=== PATIENT | female | born 1950 | race Two or more races ===

== ENCOUNTER 2024-03-18 21:25 | Inpatient (IN) | payer MEDICAID ==
[~2024-03-18] VITALS: Ht 162.6 cm; Wt 63.8 kg
[2024-03-19] VITALS (8 sets, daily range): BP systolic 137–153; BP diastolic 51–74; PULSE 55–69; RESP 12–19; TEMP 98–98.2; O2SAT 94–98
[2024-03-19 00:01] LABS: Basophils # (auto) 0 10 ^3/uL (0-0.2); Eosinophils # (auto) 0 10 ^3/uL (0-0.8); Eosinophils % (auto) 0.6 % (0.0-7.0); Monocytes # (auto) 0.5 10 ^3/uL (0-1.3); White Blood Cell 8.2 10^3/uL (4.4-10.8)
[2024-03-19 00:03] LABS: Basophils % (auto) 0.5 % (0.0-2.0); Hematocrit 42.6 % (36.0-46.0); Hemoglobin 13.9 g/dL (12.2-16.2); Lymphocytes # (auto) 1.6 10 ^3/uL (0.4-5.4); Lymphocytes % (auto) 19.5 % (10.0-50.0); Mean Corpuscular Hemoglobin 26.7 pg (28.0-32.0); Mean Corpuscular Hgb Conc. 32.6 g/dL (32.0-36.0); Monocytes % (auto) 5.8 % (0.0-12.0); Neutrophils % (auto) 73.6 % (37.0-80.0); Nucleated Red Blood Cells % 0.1 %; Red Blood Cells 5.19 10^6/uL (4.0-5.20); Red Cell Distribution Width 12.7 % (11.8-14.3)
[2024-03-19 00:05] LABS: Chloride 104 mmol/L (98-107); Potassium 4.5 mmol/L (3.5-5.1); Sodium 138 mmol/L (136-145)
[2024-03-19 00:06] LABS: Anion Gap 3 (5-15); Calcium 11.2 mg/dL (8.7-10.4); Carbon Dioxide 31 mmol/L (20-30)
[2024-03-19 00:11] LABS: BUN/Creatinine Ratio 16.7 (10.0-20.0); Blood Urea Nitrogen 12 mg/dL (9-23); Glucose 235 mg/dL (74-106); Lipase 27 U/L (12-53)
[2024-03-19 03:13] LABS: Urine Bacteria None Seen /hpf (None Seen)
[2024-03-19 03:54] LABS: Urine Blood Negative /uL (Negative); Urine Clarity Clear (Clear); Urine Color Light-Yellow (Yellow); Urine Protein, UAD Negative (Negative); Urine Specific Gravity 1.019 (1.001-1.035); Urine Urobilinogen Normal (Negative); Urine WBC 3 /hpf (0 - 5); Urine pH 7.5 (5.0-9.0)
[2024-03-19] MEDS: SODIUM CHLORIDE 0.9% 1,000 ML IV ONE (04:42)
[2024-03-19] MEDS: ONDANSETRON HCL 4 MG/2 ML VIAL IV ONE (04:43)
[2024-03-19] MEDS: PANTOPRAZOLE 40 MG/10 ML VIAL INJ IV ONE (04:43)
[2024-03-19] MEDS ORDERED: MORPHINE SULFATE INJ 2 MG/ml SYRG IV PRN (06:15)
[2024-03-19] MEDS ORDERED: ONDANSETRON HCL 4 MG/2 ML VIAL IV PRN ×2 (06:15→06:30)
[2024-03-19] MEDS ORDERED: SODIUM CHLORIDE 0.9% 1,000 ML IV SCH (06:15)
[2024-03-19] MEDS: PANTOPRAZOLE 40 MG/10 ML VIAL INJ IV SCH (13:37)
[2024-03-19] MEDS: SODIUM CHLORIDE 0.9% 1,000 ML IV SCH (13:37)
[2024-03-19] MEDS ORDERED: DEXTROSE (50%) 50ML SYRG IV PRN (15:30)
[2024-03-20] MEDS: InsuLIN REG 1unit/0.01ml Soln (100units/ml) SC SCH
[2024-03-20] MEDS: ACCU-CHEK COMFORT CURVE STRIP VI SCH (00:05)
[2024-03-20 01:00] VITALS: BP 134/49; PULSE 76; RESP 16; TEMP 97.2; O2SAT 96
[2024-03-20] MEDS: D5W/SOD CHL 0.45% 1,000 ML IV SCH (01:28)
[2024-03-20] MEDS ORDERED: LOSA-534 PO (02:18)
[2024-03-20] MEDS ORDERED: ASPI81CH74 PO (02:18)
[2024-03-20] MEDS ORDERED: CLOP75TA70 PO (02:18)
[2024-03-20] MEDS ORDERED: OXYB5SYP4 PO (02:18)
[2024-03-20] MEDS ORDERED: ATOR40TA52 PO (02:18)
[2024-03-20] MEDS ORDERED: AMLO1TAB22 PO (02:18)
[2024-03-20] MEDS ORDERED: HYDR25TA4 PO (02:18)
[2024-03-20] MEDS ORDERED: HYDR25TA5 GT (02:18)
[2024-03-20] MEDS ORDERED: ATEN50TA PO (02:18)
[2024-03-20 05:00] VITALS: BP 157/69; PULSE 64; RESP 17; TEMP 97.4; O2SAT 98
[2024-03-20 05:59] LABS: Basophils # (auto) 0 10 ^3/uL (0-0.2); Basophils % (auto) 0.6 % (0.0-2.0); Eosinophils # (auto) 0.1 10 ^3/uL (0-0.8); Eosinophils % (auto) 1.6 % (0.0-7.0); Hematocrit 38.5 % (36.0-46.0); Hemoglobin 12.7 g/dL (12.2-16.2); Lymphocytes # (auto) 1.6 10 ^3/uL (0.4-5.4); Lymphocytes % (auto) 38.5 % (10.0-50.0); Mean Corpuscular Hgb Conc. 33.1 g/dL (32.0-36.0); Mean Corpuscular Volume 81.4 fL (80.0-100.0); Monocytes # (auto) 0.3 10 ^3/uL (0-1.3); Monocytes % (auto) 8.1 % (0.0-12.0); Neutrophils # (auto) 2.1 10 ^3/uL (1.6-8.6); Neutrophils % (auto) 51.2 % (37.0-80.0); Nucleated Red Blood Cells % 0.1 %; Red Blood Cells 4.72 10^6/uL (4.0-5.20); Red Cell Distribution Width 13.1 % (11.8-14.3); White Blood Cell 4.1 10^3/uL (4.4-10.8)
[2024-03-20 06:07] LABS: Chloride 108 mmol/L (98-107); Sodium 140 mmol/L (136-145)
[2024-03-20 06:08] LABS: Anion Gap 7 (5-15); Calcium 9.5 mg/dL (8.7-10.4); Carbon Dioxide 25 mmol/L (20-30)
[2024-03-20 06:13] LABS: Glucose 100 mg/dL (74-106)
[2024-03-20 06:32] LABS: BUN/Creatinine Ratio 10.4 (10.0-20.0); Blood Urea Nitrogen < 5 mg/dL (9-23)
[2024-03-20 09:00] VITALS: BP 149/66; PULSE 60; RESP 16; TEMP 97.1; O2SAT 97
[2024-03-20] MEDS: ENOXAPARIN SOD 40 MG/0.4 ML SYRINGE SC SCH (09:39)
[2024-03-20] MEDS: D5W/SOD CHL 0.45%/KCL 20MEQ 1,000 ML IV SCH ×2 (09:39→19:45)
[2024-03-20 12:36] VITALS: BP 139/64; PULSE 74; RESP 16; TEMP 97.6; O2SAT 98
[2024-03-20 13:47] LABS: Chloride 109 mmol/L (98-107); Potassium 4.3 mmol/L (3.5-5.1); Sodium 144 mmol/L (136-145)
[2024-03-20 13:48] LABS: Anion Gap 9 (5-15); Carbon Dioxide 26 mmol/L (20-30)
[2024-03-20 13:49] LABS: Calcium 10.5 mg/dL (8.7-10.4)
[2024-03-20 13:54] LABS: BUN/Creatinine Ratio 11.8 (10.0-20.0); Blood Urea Nitrogen 8 mg/dL (9-23); Glucose 179 mg/dL (74-106)
[2024-03-20 16:48] VITALS: BP 157/78; PULSE 76; RESP 16; TEMP 97.8; O2SAT 99
[2024-03-20 21:00] VITALS: BP 152/68; PULSE 72; RESP 20; TEMP 98; O2SAT 96
[2024-03-20] MEDS: amLODIPine BESYLATE 5 MG TAB PO SCH (21:55)
[2024-03-21 01:00] VITALS: BP 159/77; PULSE 79; RESP 20; TEMP 98.2; O2SAT 94
[2024-03-21 05:00] VITALS: BP 162/91; PULSE 87; RESP 20; TEMP 97.7; O2SAT 98
[2024-03-21 07:06] LABS: Free Thyroxine Index 2.1 (1.2-4.9); Thyroxine (T4) 6.7 ug/dL (4.5-12.0)
[2024-03-21 08:56] VITALS: BP 139/61; PULSE 75; RESP 16; TEMP 98.7; O2SAT 100
[2024-03-21] MEDS: GASTROGRAFIN 120 ML SOL ONE (10:45)
[2024-03-21 12:59] VITALS: BP 145/73; PULSE 94; RESP 18; TEMP 98.7; O2SAT 98
[2024-03-21 15:22] VITALS: BP 139/61
== END 2024-03-21 16:12 | disposition home or self-care (01) | DRG 247 ==
LOC: ER 21:25 → CENTRAL 03-19 08:04
PROVIDERS: ADMIT Nurse Practitioner Family; ATTEND Nurse Practitioner Acute Care
PROC: 0D9670Z Drainage of Stomach with Drainage Device, Via Natural or Artificial Opening (ICD-10-PCS; principal; 2024-03-19)
DX: K56.609 Unspecified intestinal obstruction, unspecified as to partial versus complete obstruction (principal); E83.51 Hypocalcemia; E11.9 Type 2 diabetes mellitus without complications; E83.52 Hypercalcemia
CPT/HCPCS: 36415; 71045; 74250; 76642; 80048; 81001; 82962; 83036; 83690; 84443; 85025; 93005; G0378; J1815; J2405

== ENCOUNTER 2024-04-26 17:08 | Emergency (ER) | payer MEDICAID ==
[~2024-04-26] VITALS: Ht 162.6 cm; Wt 60.3 kg
[~2024-04-26 17:08] MED LIST: AMLO1TAB22 PO; ASPI81CH74 PO; ATEN50TA PO; ATOR40TA52 PO; CLOP75TA70 PO; HYDR25TA4 PO; LOSA-534 PO; OXYB5SYP4 PO
[2024-04-26 17:20] VITALS: BP 154/61; PULSE 73; RESP 28; O2SAT 98
[2024-04-26] MEDS ORDERED: FLUT1SPR5 (19:28)
== END 2024-04-26 19:43 | disposition home or self-care (01) ==
LOC: ER 17:08
DX: J30.9 Allergic rhinitis, unspecified (principal); R05.3 Chronic cough
CPT/HCPCS: 71046

== ENCOUNTER 2024-05-13 14:17 | Inpatient (IN) | payer MEDICAID ==
[~2024-05-13] VITALS: Ht 162.6 cm; Wt 60.0 kg
[2024-05-13 16:25] LABS: Alanine Aminotransferase 17 U/L (7-40); Albumin 4.4 g/dL (3.2-4.8); Alkaline Phosphatase 71 U/L (46-116); Anion Gap 5 (5-15); Aspartate Aminotransferase 10 U/L (13-40); BUN/Creatinine Ratio 16.9 (10.0-20.0); Bilirubin, Total 1.5 mg/dL (0.2-1.0); Blood Urea Nitrogen 14 mg/dL (9-23); Calcium 10.5 mg/dL (8.7-10.4); Carbon Dioxide 31 mmol/L (20-30); Chloride 104 mmol/L (98-107); Glucose 308 mg/dL (74-106); Magnesium 1.9 mg/dL (1.6-2.6); Potassium 4.2 mmol/L (3.5-5.1); Sodium 140 mmol/L (136-145)
[2024-05-13 16:29] LABS: Basophils # (auto) 0 10 ^3/uL (0-0.2); Basophils % (auto) 0.4 % (0.0-2.0); Eosinophils # (auto) 0 10 ^3/uL (0-0.8); Eosinophils % (auto) 0.1 % (0.0-7.0); Hematocrit 39.2 % (36.0-46.0); Hemoglobin 13.4 g/dL (12.2-16.2); Lymphocytes % (auto) 16.1 % (10.0-50.0); Mean Corpuscular Hemoglobin 27.8 pg (28.0-32.0); Mean Corpuscular Hgb Conc. 34.3 g/dL (32.0-36.0); Monocytes # (auto) 0.3 10 ^3/uL (0-1.3); Monocytes % (auto) 4.3 % (0.0-12.0); Neutrophils # (auto) 4.7 10 ^3/uL (1.6-8.6); Neutrophils % (auto) 79.1 % (37.0-80.0); Nucleated Red Blood Cells % 0.2 %; Platelet Count (auto) 212 10^3/uL (140-450); Red Blood Cells 4.84 10^6/uL (4.0-5.20); Red Cell Distribution Width 12.2 % (11.8-14.3); White Blood Cell 5.9 10^3/uL (4.4-10.8)
[2024-05-13] MEDS: MECLIZINE HCL 25 MG TAB PO ONE (17:03)
[2024-05-13] MEDS ORDERED: MECLIZINE HCL 25 MG TAB PO PRN (23:00)
[2024-05-13] MEDS ORDERED: ACETAMINOPHEN 325 MG TAB PO PRN (23:00)
[2024-05-13] MEDS ORDERED: ONDANSETRON HCL 4 MG/2 ML VIAL IV PRN (23:00)
[2024-05-13] MEDS ORDERED: DEXTROSE (50%) 50ML SYRG IV PRN (23:00)
[2024-05-14] VITALS (8 sets, daily range): BP systolic 102–159; BP diastolic 58–84; PULSE 47–106; RESP 14–20; TEMP 97.5–98.3; O2SAT 94–98
[2024-05-14] MEDS: ACCU-CHEK COMFORT CURVE STRIP VI SCH (01:21)
[2024-05-14] MEDS: InsuLIN REG 1unit/0.01ml Soln (100units/ml) SC SCH (01:25)
[2024-05-14 06:19] LABS: Chloride 108 mmol/L (98-107); Sodium 142 mmol/L (136-145)
[2024-05-14 06:20] LABS: Carbon Dioxide 29 mmol/L (20-30)
[2024-05-14 06:21] LABS: Calcium 9.9 mg/dL (8.7-10.4)
[2024-05-14 06:25] LABS: Anion Gap 5 (5-15); Glucose 114 mg/dL (74-106)
[2024-05-14 06:26] LABS: BUN/Creatinine Ratio 19.4 (10.0-20.0); Blood Urea Nitrogen 12 mg/dL (9-23)
[2024-05-14] MEDS: hydroCHLOROthiazide 25 MG TAB PO SCH (09:07)
[2024-05-14] MEDS: ASPirin 81 mg TAB PO SCH (09:08)
[2024-05-14] MEDS: POTASSIUM CHL 20 Meq TABLET PO ONE ×2 (09:08→12:17)
[2024-05-14] MEDS: CLOPIDOGREL BISULFATE 75 MG TAB PO SCH (09:11)
[2024-05-14] MEDS: LOSARTAN POTASSIUM 50 MG TAB PO SCH (09:17)
[2024-05-14] MEDS: ATENOLOL 25 MG TAB PO SCH (10:00)
[2024-05-14] MEDS: amLODIPine BESYLATE 5 MG TAB PO SCH (12:18)
[2024-05-14] MEDS: PANTOPRAZOLE 40 MG TAB PO ONE (19:55)
[2024-05-14] MEDS: ATORVASTATIN 20 MG TAB PO SCH (21:49)
[2024-05-15] VITALS (8 sets, daily range): BP systolic 114–153; BP diastolic 55–72; PULSE 50–92; RESP 16–23; TEMP 97.5–98.6; O2SAT 91–99
[2024-05-15 05:00] LABS: Alanine Aminotransferase 14 U/L (7-40); Albumin 4.2 g/dL (3.2-4.8); Alkaline Phosphatase 62 U/L (46-116); Anion Gap 7 (5-15); Aspartate Aminotransferase 11 U/L (13-40); BUN/Creatinine Ratio 16.9 (10.0-20.0); Bilirubin, Total 1.4 mg/dL (0.2-1.0); Blood Urea Nitrogen 11 mg/dL (9-23); Calcium 9.7 mg/dL (8.7-10.4); Carbon Dioxide 27 mmol/L (20-30); Chloride 109 mmol/L (98-107); Glucose 111 mg/dL (74-106); Potassium 3.4 mmol/L (3.5-5.1); Sodium 143 mmol/L (136-145); Total Protein 6.7 g/dL (5.7-8.2)
[2024-05-15] MEDS: PANTOPRAZOLE 40 MG TAB PO SCH (06:01)
[2024-05-15] MEDS: POTASSIUM CHL 20 Meq TABLET PO ONE (12:25)
[2024-05-15] MEDS: ENOXAPARIN SOD 40 MG/0.4 ML SYRINGE SC ONE (12:49)
[2024-05-16] VITALS (8 sets, daily range): BP systolic 125–155; BP diastolic 64–82; PULSE 50–79; RESP 20–21; TEMP 37; O2SAT 91–100
[2024-05-16 07:25] LABS: Alanine Aminotransferase 14 U/L (7-40); Albumin 4.3 g/dL (3.2-4.8); Alkaline Phosphatase 69 U/L (46-116); Anion Gap 3 (5-15); Aspartate Aminotransferase 13 U/L (13-40); BUN/Creatinine Ratio 12.7 (10.0-20.0); Blood Urea Nitrogen 9 mg/dL (9-23); Calcium 10.1 mg/dL (8.7-10.4); Carbon Dioxide 30 mmol/L (20-30); Chloride 107 mmol/L (98-107); Glucose 131 mg/dL (74-106); Potassium 3.7 mmol/L (3.5-5.1); Sodium 140 mmol/L (136-145)
[2024-05-16 07:26] LABS: Bilirubin, Total 2.1 mg/dL (0.2-1.0)
[2024-05-16 07:27] LABS: Total Protein 7.1 g/dL (5.7-8.2)
[2024-05-16] MEDS: amLODIPine BESYLATE 5 MG TAB PO SCH (09:08)
[2024-05-16] MEDS: ENOXAPARIN SOD 40 MG/0.4 ML SYRINGE SC SCH (09:10)
[2024-05-16] MEDS ORDERED: ACET-1882 PO (12:49)
[2024-05-16] MEDS ORDERED: PANT40T PO (12:49)
== END 2024-05-16 16:30 | disposition home or self-care (01) | DRG 45 ==
LOC: ER 14:17 → OVERFLOW 23:02 → CENTRAL 23:51 → TELE-CENTR 05-15 12:20
PROVIDERS: ADMIT Internal Medicine Pulmonary Disease; ATTEND Emergency Medicine
DX: I63.9 Cerebral infarction, unspecified (principal); I69.351 Hemiplegia and hemiparesis following cerebral infarction affecting right dominant side; E11.9 Type 2 diabetes mellitus without complications; E87.6 Hypokalemia; I10 Essential (primary) hypertension; I25.10 Atherosclerotic heart disease of native coronary artery without angina pectoris
CPT/HCPCS: 36415; 70450; 70551; 71045; 80048; 80053; 82607; 82962; 83036; 83735; 83880; 84443; 84484; 85025; 93005; 93306; 93886; 97163; G0378; J1815

== ENCOUNTER 2024-08-19 17:14 | Emergency (ER) | payer MEDICAID, OTHER ==
[~2024-08-19] VITALS: Ht 162.6 cm; Wt 59.1 kg
[~2024-08-19 17:14] MED LIST changes: +ACET-1882 PO; +PANT40T PO
[2024-08-19 18:41] LABS: Basophils # (auto) 0.1 10 ^3/uL (0-0.2); Basophils % (auto) 1.3 % (0.0-2.0); Eosinophils # (auto) 0.1 10 ^3/uL (0-0.8); Eosinophils % (auto) 1.3 % (0.0-7.0); Hematocrit 42.3 % (36.0-46.0); Hemoglobin 14.2 g/dL (12.2-16.2); Lymphocytes # (auto) 1.5 10 ^3/uL (0.4-5.4); Lymphocytes % (auto) 28.7 % (10.0-50.0); Mean Corpuscular Hgb Conc. 33.4 g/dL (32.0-36.0); Mean Corpuscular Volume 80.7 fL (80.0-100.0); Monocytes # (auto) 0.4 10 ^3/uL (0-1.3); Monocytes % (auto) 7.5 % (0.0-12.0); Neutrophils # (auto) 3.3 10 ^3/uL (1.6-8.6); Neutrophils % (auto) 61.2 % (37.0-80.0); Nucleated Red Blood Cells % 0.1 %; Platelet Count (auto) 229 10^3/uL (140-450); Red Blood Cells 5.24 10^6/uL (4.0-5.20); Red Cell Distribution Width 12.7 % (11.8-14.3); White Blood Cell 5.3 10^3/uL (4.4-10.8)
[2024-08-19 19:02] LABS: Alanine Aminotransferase 16 U/L (7-40); Alkaline Phosphatase 83 U/L (46-116); Anion Gap 8 (5-15); Blood Urea Nitrogen 10 mg/dL (9-23); Carbon Dioxide 31 mmol/L (20-31); Chloride 101 mmol/L (98-107); Potassium 3.7 mmol/L (3.5-5.1); Sodium 140 mmol/L (136-145)
[2024-08-19 19:03] LABS: Albumin 4.8 g/dL (3.2-4.8); Aspartate Aminotransferase 9 U/L (13-40); Bilirubin, Total 1.1 mg/dL (0.2-1.0); Calcium 10.8 mg/dL (8.7-10.4); Glucose 246 mg/dL (74-106); Total Protein 7.4 g/dL (5.7-8.2)
--- NOTE | 2024-08-19 19:16 | DVH ---
EXAM: XY CHEST PORTABLE TECHNIQUE: Single frontal chest radiograph CLINICAL HISTORY: weak COMPARISON: XY CHEST PORTABLE on DOS: 05/13/24, XY CHEST XRAY 1 VIEW on DOS: 03/19/24 Findings/Impression: Frontal chest radiograph demonstrates no acute osseous or superficial soft tissue abnormalities. The trachea is midline. The cardiac silhouette and mediastinum are within normal limits. No pneumothorax, pleural effusions, or consolidations.
--- NOTE | 2024-08-19 19:21 | DVH ---
Right lower extremity venous duplex Clinical History: pain Comparison: None Findings: Duplex Doppler evaluation of the deep venous system of the right lower extremity from the common femo ral vein to the popliteal vein including color Doppler and spectral/pulsed waveform analysis was perf ormed. The common femoral vein demonstrates appropriate compressibility and waveform variability. There is compressibility/patency of the great saphenous vein at the proximal thigh. The femoral vein demonstrates appropriate compressibility and waveform variability. The deep femoral vein demonstrates appropriate compressibility and waveform variability. The popliteal vein demonstrates appropriate compressibility and waveform variability. There is normal compressibility at the tibioperoneal trunk. Impression: No right femoropopliteal venous thrombosis. If clinical concern/symptoms persist or worsen, short-interval follow-up study is suggested.
--- NOTE | 2024-08-19 19:53 | ED.PDOC ---
Musculoskeletal HPI Comments HPI: Poor Historian. 74-year-old female brought in by her family members for evaluation of acute on chronic right lower extremity pain. Pain is worse with ambulation and movement. Denies any recent fall or trauma. She had this kind of pain for many years. She typically uses Tylenol for her pain. She recently moved from [place] approximately two months ago. Denies any other acute symptoms. Vitals: Temp: 98.6 F RR: 16 02 sat: 98% on room air HR: 85 BP: 135/75 PMH: Multiple subcentimeter acute ischemia of the parietal subcortical region Moderate right-sided coronary artery stenosis History of prior strokes Essential hypertension Uncontrolled diabetes type 2 (A1C 7.9) Hypokalemia resolved PSH: denies Social history: denies tobacco use, denies ETOH use, denies drug use Meds: unknown allergies: nkda REVIEW OF SYSTEMS: CONSTITUTIONAL: Denies acute: fever, diaphoresis, chills, generalized weakness. HEAD: Denies acute: headache, photophobia Eyes: Denies acute: Double vision, vision loss, eye pain, eye discharge. EARS: Denies acute: tinnitus, hearing loss, ear discharge, ear pain, THROAT: Denies acute: sore throat, swelling, difficulty swallowing , pain with swallowing, change in voice. NECK: Denies acute: neck pain, neck swelling, stiff neck. HEART: Denies acute : chest pain, palpitations, LUNGS: Denies acute: SOB, wheezing, cough, hemoptysis ABDOMEN: Denies acute: abdominal pain, Nausea, Vomiting, diarrhea, melena , hematemesis, hematochezia SKIN: Denies acute: rash, redness, lesions, itchiness. EXTREMITIES: Denies acute: calf pain, numbness, tingling, weakness, Denies acute: Low back pain. Neuro: Denies acute: focal neurological deficit, motor or sensory focal neurological deficit, tremors, seizure like activity, confusion, dizziness, change in mental status, loss of bowel or bladder function, cauda equina like symptoms. : Denies acute: dysuria, hematuria, flank pain, increase in urinary frequency. PSYCH: Denies acute: hallucination, suicidal ideation, homicidal ideation. FEMALE: Denies acute: abnormal vaginal bleeding, foul odor, unusual discharge. PHYSICAL EXAM: General: no acute distress, awake and alert. Head: normocephalic, atraumatic. Neck: supple, trachea is midline, no swelling. Throat: Normal phonation. Eyes:, no erythema, no purulent discharge, no proptosis, no icterus. Heart: regular rate, regular rhythm, no significant murmur appreciated. Lungs: no apparent respiratory distress, Able to speak in full sentences. No wheezing, no rhonchi, no crackles. No stridors Clear to auscultation bilaterally. Abdomen: non tender to palpation, non distended, soft, no guarding, no rebound, + bowel sounds. Neuro: Awake, Alert, oriented to name, self, situation, follows commands GCS=15. Speech is normal. Skin: no petechia, no purpura, no cyanosis, non-pale, not jaundice. Lower extremities: --no - Pitting edema no deformity, no focal swelling, no calf TTP. Patient is neurovascularly intact in the affected extremity. Pedal pulses palpable. Motor and sensory are present. Makes eye contact. moves all four extremities. Face: no apparent facial droop. Pedal pulses are palpable. Chief Complaint: Lower Extremity Time Seen by MD: 19:52 Primary Care Provider: NONE Reviewed Notes: Nurses Notes, Medications, Allergies Allergies: Coded Allergies: NO KNOWN ALLERGIES (Unverified , 03/18/24) Home Meds Active Scripts Pantoprazole Sodium Sesquihydr (Pantoprazole Sodium) 40 Mg Tab, 40 MG PO DAILY@0600 for 30 Days, #30 TAB Prov:GABRIEL PETTY RESIDENT 05/16/24 Acetaminophen (Acetaminophen) 325 Mg Tab, 650 MG PO Q6HP PRN for 10 Days, #80 TAB Prov:GABRIEL PETTY RESIDENT 05/16/24 Reported Medications Hydrochlorothiazide (Hydrochlorothiazide) 25 Mg Tab, 1 TAB PO DAILY, #30 TAB 5 Refills 03/20/24 Amlodipine Besylate (Amlodipine Besylate) 5 Mg Tab, 10 MG PO DAILY for 30 Days, MG 03/20/24 Aspirin (Aspirin 81 Low Dose) 81 Mg Chw, 81 MG PO DAILY, TAB.CHEW 03/20/24 Atenolol (Atenolol) 50 Mg Tab, 25 MG PO DAILY for 30 Days, MG 03/20/24 Clopidogrel Bisulfate (CLOPIDOGREL) 75 Mg Tab, 75 MG PO DAILY for 30 Days, MG 03/20/24 Atorvastatin Calcium (ATORVASTATIN CALCIUM) 40 Mg Tab, 40 MG PO DAILY, TAB 03/20/24 Oxybutynin Chloride (Oxybutynin Chloride) 5 Mg/5 Ml Syp, 5 MG PO BID, SYP 03/20/24 Losartan Potassium (Losartan Potassium) 50 Mg Tab, 50 MG PO DAILY for 30 Days, MG 03/20/24 Information Source: Patient, Relative Mode of Arrival: Ambulatory Location: Right Past Medical History PAST MEDICAL HISTORY: CVA, DM, HTN Surgical History: Denies all surgeries CABLE TOOL DRILLER History: 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 Was a procedure done?: No Differential Diagnosis EXT Differential Diagnosis: Cellulitis, CHF, Deep Vein Thrombosis, Compartment Syndrome, Fracture, Sprain, Dislocation, Contusion, Strain, Neurovascular injury, Bursitis, Other X-Ray, Labs, Meds, VS Vital Signs Date Time Temp Pulse Resp B/P (MAP) Pulse Ox O2 Delivery O2 Flow Rate FiO2 08/19/24 23:11 98.3 72 17 144/74 (97) 97 98.3 08/19/24 23:11 72 17 97 Room Air* 0 21 08/19/24 18:21 98.6 85 16 135/75 (95) 98 Lab Test 08/19/24 21:12 08/19/24 18:28 Range/Units Influenza Type A Antigen Negative Negative Influenza Type B Antigen Negative Negative SARS-CoV-2 Antigen (Rapid) Negative NEGATIVE White Blood Count 5.3 4.4-10.8 10^3/uL Red Blood Count 5.24 H 4.0-5.20 10^6/uL Hemoglobin 14.2 12.2-16.2 g/dL Hematocrit 42.3 36.0-46.0 % Mean Corpuscular Volume 80.7 80.0-100.0 fL Mean Corpuscular Hemoglobin 27.0 L 28.0-32.0 pg Mean Corpuscular Hemoglobin Concent 33.4 32.0-36.0 g/dL Red Cell Distribution Width 12.7 11.8-14.3 % Platelet Count 229 140-450 10^3/uL Mean Platelet Volume 8.6 6.9-10.8 fL Neutrophils (%) (Auto) 61.2 37.0-80.0 % Lymphocytes (%) (Auto) 28.7 10.0-50.0 % Monocytes (%) (Auto) 7.5 0.0-12.0 % Eosinophils (%) (Auto) 1.3 0.0-7.0 % Basophils (%) (Auto) 1.3 0.0-2.0 % Neutrophils # (Auto) 3.3 1.6-8.6 10 ^3/uL Lymphocytes # (Auto) 1.5 0.4-5.4 10 ^3/uL Monocytes # (Auto) 0.4 0-1.3 10 ^3/uL Eosinophils # (Auto) 0.1 0-0.8 10 ^3/uL Basophils # (Auto) 0.1 0-0.2 10 ^3/uL Nucleated Red Blood Cells 0.1 % Sodium Level 140 136-145 mmol/L Potassium Level 3.7 3.5-5.1 mmol/L Chloride Level 101 98-107 mmol/L Carbon Dioxide Level 31 20-31 mmol/L Anion Gap 8 5-15 Blood Urea Nitrogen 10 9-23 mg/dL Creatinine 0.83 0.550-1.02 mg/dL Glomerular Filtration Rate Calc 73 >90 mL/min BUN/Creatinine Ratio 12.0 10.0-20.0 Serum Glucose 246 H 74-106 mg/dL Calcium Level 10.8 H 8.7-10.4 mg/dL Total Bilirubin 1.1 H 0.2-1.0 mg/dL Aspartate Amino Transferase (AST) 9 L 13-40 U/L Alanine Aminotransferase (ALT) 16 7-40 U/L Alkaline Phosphatase 83 46-116 U/L Troponin I High Sensitivity 5 </=34 ng/L B-Type Natriuretic Peptide 8.52 0-100 pg/mL Total Protein 7.4 5.7-8.2 g/dL Albumin 4.8 3.2-4.8 g/dL Current Medications Medications (Trade) Dose Ordered Sig/Enio Route Start Time Stop Time Status Last Admin Acetaminophen/ Hydrocodone Bitart ([place] 5/325MG Tab) 1 tab ONCE ONCE PO 08/19/24 20:15 08/19/24 20:16 DC 08/19/24 23:16 [facility] [address] [facility] [address] Ph: [phone] DIAGNOSTIC IMAGING Diagnostic Imaging Report : [id number] Signed PATIENT: BEV TREJOCCT: [id number] UNIT: [id number] : 1950 LOC: ER ROOM / BED: / AGE / SEX: 74 / F ADM STATUS: REG ER SERVICE 09 ORDERING PHYSICIAN: VICKI CLAYTON DO PROCEDURE(s): RLDVT - RT Lower DVT REASON: pain ORDER NUMBER(s): [id number], ACCESSION NUMBER(s): [id number] Right lower extremity venous duplex Clinical History: pain Comparison: None Findings: Duplex Doppler evaluation of the deep venous system of the right lower extremity from the common femoral vein to the popliteal vein including color Doppler and spectral/pulsed waveform analysis was performed. The common femoral vein demonstrates appropriate compressibility and waveform variability. There is compressibility/patency of the great saphenous vein at the proximal thigh. The femoral vein demonstrates appropriate compressibility and waveform variability. The deep femoral vein demonstrates appropriate compressibility and waveform variability. The popliteal vein demonstrates appropriate compressibility and waveform variability. There is normal compressibility at the tibioperoneal trunk. Impression: No right femoropopliteal venous thrombosis. If clinical concern/symptoms persist or worsen, short-interval follow-up study is suggested. ATED BY: PARESH STATON MD DICTATED DATE/TIME: 08/19/241918 SIGNED BY: PARESH STATON MD SIGNED DATE/TIME: 08/19/241918 CC: [address] [address] Ph: [phone] DIAGNOSTIC IMAGING Diagnostic Imaging Report : [id number] Signed PATIENT: BEV TREJOCCT: [id number] UNIT: [id number] : 1950 LOC: ER ROOM / BED: / AGE / SEX: 74 / F ADM STATUS: REG ER SERVICE 09 ORDERING PHYSICIAN: VICKI CLAYTON DO PROCEDURE(s): CXRP - CHEST PORTABLE REASON: weak ORDER NUMBER(s): [id number], ACCESSION NUMBER(s): [id number] EXAM: XY CHEST PORTABLE TECHNIQUE: Single frontal chest radiograph CLINICAL HISTORY: weak COMPARISON: XY CHEST PORTABLE on DOS: 05/13/24, XY CHEST XRAY 1 VIEW on DOS: 03/19/24 Findings/Impression: Frontal chest radiograph demonstrates no acute osseous or superficial soft tissue abnormalities. The trachea is midline. The cardiac silhouette and mediastinum are within normal limits. No pneumothorax, pleural effusions, or consolidations. ATED BY: DOMINIQUE PEREZ DO DICTATED DATE/TIME: 08/19/241913 SIGNED BY: DOMINIQUE PEREZ DO SIGNED DATE/TIME: 08/19/241913 CC: [place] [address] Ph: [phone] DIAGNOSTIC IMAGING Diagnostic Imaging Report : [id number] Signed PATIENT: BEV TREJOCCT: [id number] UNIT: [id number] : 1950 LOC: ER ROOM / BED: / AGE / SEX: 74 / F ADM STATUS: REG ER SERVICE 09 ORDERING PHYSICIAN: VICKI CLAYTON DO PROCEDURE(s): RLDVT - RT Lower DVT REASON: pain ORDER NUMBER(s): [id number], ACCESSION NUMBER(s): [id number] Right lower extremity venous duplex Clinical History: pain Comparison: None Findings: Duplex Doppler evaluation of the deep venous system of the right lower extremity from the common femoral vein to the popliteal vein including color Doppler and spectral/pulsed waveform analysis was performed. The common femoral vein demonstrates appropriate compressibility and waveform variability. There is compressibility/patency of the great saphenous vein at the proximal thigh. The femoral vein demonstrates appropriate compressibility and waveform variability. The deep femoral vein demonstrates appropriate compressibility and waveform variability. The popliteal vein demonstrates appropriate compressibility and waveform variability. There is normal compressibility at the tibioperoneal trunk. Impression: No right femoropopliteal venous thrombosis. If clinical concern/symptoms persist or worsen, short-interval follow-up study is suggested. ATED BY: PARESH STATON MD DICTATED DATE/TIME: 08/19/241918 SIGNED BY: PARESH STATON MD SIGNED DATE/TIME: 08/19/241918 CC: Time of 1ST Reevaluation: 23:18 Reevaluation 1ST: Improved Patient Education/Counseling: Diagnosis, Treatment Family Education/Counseling: Diagnosis, Treatment Comments Patient presented with the above HPI.--leg pain----workup was initiated. patient was found with the above mentioned diagnosis. Patient was given: [place] Patient ED course and VS have been stabilized. Patient has been reassessed in the ED and remained in a stable condition. Pertinent incidental findings were discussed with the patient and/or family. Patient/family voices understanding and is agreeable with plan. Patient has been observed in the ED adequate length of time to insure improvement/stability. patient was discharged home in a stable condition. All the reports of any imaging studies that were ordered by myself were reviewed by myself. Departure 1 Departure Time of Disposition: 23:00 Impression: Primary Impression: Chronic leg pain Disposition: 01 HOME / SELF CARE / HOMELESS Condition: Stable Additional Instructions: Additional discharge instructions: You MUST follow-up with your primary care/family doctor in 1 to 2 days. If you are unable to see your primary care/family doctor, please return to our emergency room for re-assessment and re-evaluation in 1 to 2 days. Return to the emergency room here in our facility or to the nearest ER [facility] if your symptoms change or worsen. CONSULTATIONS: you MUST Follow-up for consultation as soon as possible with: -orthopedic doctor in 1-2 days. Please call for appointment You MUST call the consultants office yourself to make an appointment. You may need to arrange that through your insurance and/or your primary/family doctor. If you are unable to see the commercial sales consultant in 1 to 2 days, you must return to our emergency room (or any other ER of your choice) for re-assessment and re- evaluation. Adequate fluid hydration. [facility] [address] [facility] [address] Ph: [phone] DIAGNOSTIC IMAGING Diagnostic Imaging Report : [id number] Signed PATIENT: BEV TREJO ACCT: [id number] UNIT: [id number] : 1950 LOC: ER ROOM / BED: / AGE / SEX: 74 / F ADM STATUS: REG ER SERVICE 09 ORDERING PHYSICIAN: VICKI CLAYTON DO PROCEDURE(s): RLDVT - RT Lower DVT REASON: pain ORDER NUMBER(s): [id number], ACCESSION NUMBER(s): [id number] Right lower extremity venous duplex Clinical History: pain Comparison: None Findings: Duplex Doppler evaluation of the deep venous system of the right lower extremity from the common femoral vein to the popliteal vein including color Doppler and spectral/pulsed waveform analysis was performed. The common femoral vein demonstrates appropriate compressibility and waveform variability. There is compressibility/patency of the great saphenous vein at the proximal thigh. The femoral vein demonstrates appropriate compressibility and waveform variability. The deep femoral vein demonstrates appropriate compressibility and waveform variability. The popliteal vein demonstrates appropriate compressibility and waveform variability. There is normal compressibility at the tibioperoneal trunk. Impression: No right femoropopliteal venous thrombosis. If clinical concern/symptoms persist or worsen, short-interval follow-up study is suggested. ATED BY: PARESH STATON MD DICTATED DATE/TIME: 08/19/241918 SIGNED BY: PARESH STATON MD SIGNED DATE/TIME: 08/19/241918 CC: Discharged With: Self, Relative Critical Care Note Critical Care Time?: No I personally scribed for VICKI CLAYTON DO ([email or web address]) on 08/19/24 at 19:53. Electronically submitted by Matt RUBI). VICKI CLAYTON DO Aug 19, 2024 19:53
[2024-08-19 22:45] LABS: COVID19 ANTIGEN SOFIA FIA NEGATIVE (NEGATIVE)
[2024-08-19 23:09] LABS: Rapid Influenza A Negative (Negative); Rapid Influenza B Negative (Negative)
[2024-08-19 23:11] VITALS: BP 144/74; PULSE 72; RESP 17; TEMP 98.3; O2SAT 97
[2024-08-19] MEDS: HYDROcodone-ACET 5/325MG TAB PO ONE (23:16)
[2024-08-19 23:31] LABS: Urine Bacteria None Seen /hpf (None Seen)
[2024-08-19 23:49] LABS: Urine Blood Negative /uL (Negative); Urine Clarity Clear (Clear); Urine Color Light-Yellow (Yellow); Urine Hyaline Cast FEW /lpf (0 - 2); Urine Protein, UAD Negative (Negative); Urine Specific Gravity 1.019 (1.001-1.035); Urine Urobilinogen Normal (Negative); Urine WBC <1 /hpf (0 - 5)
== END 2024-08-19 23:49 | disposition home or self-care (01) ==
LOC: ER 17:14
DX: M79.604 Pain in right leg (principal); G89.29 Other chronic pain; I10 Essential (primary) hypertension; E11.9 Type 2 diabetes mellitus without complications; Z86.73 Personal history of transient ischemic attack (TIA), and cerebral infarction without residual deficits; Z79.02 Long term (current) use of antithrombotics/antiplatelets; Z79.82 Long term (current) use of aspirin; Z79.899 Other long term (current) drug therapy; Z20.822 Contact with and (suspected) exposure to COVID-19
CPT/HCPCS: 36415; 71045; 80053; 81001; 83880; 84484; 85025; 87426; 87804; 93971

== ENCOUNTER 2024-11-29 22:50 | Inpatient (IN) | payer OTHER ==
[~2024-11-29] VITALS: Ht 162.6 cm; Wt 62.2 kg
[2024-11-29 23:20] LABS: Basophils # (auto) 0.1 10 ^3/uL (0-0.2); Basophils % (auto) 0.6 % (0.0-2.0); Eosinophils # (auto) 0 10 ^3/uL (0-0.8); Eosinophils % (auto) 0.4 % (0.0-7.0); Hematocrit 42.1 % (36.0-46.0); Hemoglobin 14.4 g/dL (12.2-16.2); Lymphocytes # (auto) 1.5 10 ^3/uL (0.4-5.4); Mean Corpuscular Hgb Conc. 34.2 g/dL (32.0-36.0); Mean Corpuscular Volume 79.1 fL (80.0-100.0); Monocytes # (auto) 0.7 10 ^3/uL (0-1.3); Monocytes % (auto) 6.4 % (0.0-12.0); Neutrophils # (auto) 8.4 10 ^3/uL (1.6-8.6); Neutrophils % (auto) 78.6 % (37.0-80.0); Nucleated Red Blood Cells % 0.1 %; Platelet Count (auto) 240 10^3/uL (140-450); Red Blood Cells 5.32 10^6/uL (4.0-5.20); Red Cell Distribution Width 12.4 % (11.8-14.3); White Blood Cell 10.7 10^3/uL (4.4-10.8)
[2024-11-29 23:28] LABS: Urine Bacteria None Seen /hpf (None Seen)
[2024-11-29 23:40] VITALS: PULSE 96; RESP 18; O2SAT 97
--- NOTE | 2024-11-29 23:44 | DVH ---
CHEST RADIOGRAPH Indication: cp Technique: Single frontal view of the chest was obtained COMPARISON: XY CHEST PORTABLE on DOS: 08/19/24, XY CHEST PORTABLE on DOS: 05/13/24, XY CHEST XRAY 1 VIE W on DOS: 03/19/24 FINDINGS: Lines and Tubes: None Lungs: Clear Pleura: No effusion. No pneumothorax. Cardiomediastinal contours: Unremarkable Bones: Unremarkable IMPRESSION: 1. No acute disease.
[2024-11-29 23:52] LABS: Urine Blood Negative /uL (Negative); Urine Clarity Clear (Clear); Urine Color Yellow (Yellow); Urine Hyaline Cast FEW /lpf (0 - 2); Urine Mucus FEW (None Seen); Urine Protein, UAD Negative (Negative); Urine Specific Gravity 1.011 (1.001-1.035); Urine Squamous Epithelial Cell FEW /hpf (<5); Urine Urobilinogen Normal (Negative); Urine WBC 1 /HPF (0-5)
[2024-11-30] MEDS: MORPHINE SULFATE INJ 2 MG/ml SYRG IV ONE (00:05)
[2024-11-30] MEDS: ASPirin 81 mg TAB PO ONE ×2 (00:05→13:39)
[2024-11-30 00:10] LABS: Alanine Aminotransferase 18 U/L (7-40); Alkaline Phosphatase 71 U/L (46-116); Anion Gap 9 (5-15); Aspartate Aminotransferase 16 U/L (13-40); BUN/Creatinine Ratio 12.5 (10.0-20.0); Blood Urea Nitrogen 10 mg/dL (9-23); Carbon Dioxide 27 mmol/L (20-31); Chloride 102 mmol/L (98-107); Sodium 138 mmol/L (136-145); Total Protein 7.6 g/dL (5.7-8.2)
[2024-11-30 00:11] LABS: Bilirubin, Total 1.1 mg/dL (0.2-1.0)
[2024-11-30 00:27] LABS: Albumin 4.8 g/dL (3.2-4.8); Calcium 10.6 mg/dL (8.7-10.4); Glucose 184 mg/dL (74-106); Potassium 2.9 mmol/L (3.5-5.1)
[2024-11-30 00:31] LABS: Rapid Influenza A Negative (Negative); Rapid Influenza B Negative (Negative)
[2024-11-30] MEDS: IOHEXOL 300 MG/ML 100ML BOTTLE IJ ONE (00:31)
[2024-11-30 00:32] LABS: COVID19 ANTIGEN SOFIA FIA NEGATIVE (NEGATIVE)
--- NOTE | 2024-11-30 00:37 | ED.PDOC ---
History of Present Illness HPI Comments 74-year-old female came to ER for chest pains. Patient has been having intermittent episodes of chest pains for the past few weeks, that the worsened today. Patient also complaining of left lower quadrant abdominal pain for the past 3 days, associated with diarrhea and headaches. Chief Complaint: Chest Pain Time Seen by MD: 00:35 Primary Care Provider: NONE Reviewed Notes: Nurses Notes Allergies: Coded Allergies: NO KNOWN ALLERGIES (Unverified , 03/18/24) Home Meds Active Scripts Pantoprazole Sodium Sesquihydr (Pantoprazole Sodium) 40 Mg Tab, 40 MG PO DAILY@0600 for 30 Days, #30 TAB Prov:GABRIEL PETTY RESIDENT 05/16/24 Acetaminophen (Acetaminophen) 325 Mg Tab, 650 MG PO Q6HP PRN for 10 Days, #80 TAB Prov:GABRIEL PETTY RESIDENT 05/16/24 Reported Medications Hydrochlorothiazide (Hydrochlorothiazide) 25 Mg Tab, 1 TAB PO DAILY, #30 TAB 5 Refills 03/20/24 Amlodipine Besylate (Amlodipine Besylate) 5 Mg Tab, 10 MG PO DAILY for 30 Days, MG 03/20/24 Aspirin (Aspirin 81 Low Dose) 81 Mg Chw, 81 MG PO DAILY, TAB.CHEW 03/20/24 Atenolol (Atenolol) 50 Mg Tab, 25 MG PO DAILY for 30 Days, MG 03/20/24 Clopidogrel Bisulfate (CLOPIDOGREL) 75 Mg Tab, 75 MG PO DAILY for 30 Days, MG 03/20/24 Atorvastatin Calcium (ATORVASTATIN CALCIUM) 40 Mg Tab, 40 MG PO DAILY, TAB 03/20/24 Oxybutynin Chloride (Oxybutynin Chloride) 5 Mg/5 Ml Syp, 5 MG PO BID, SYP 03/20/24 Losartan Potassium (Losartan Potassium) 50 Mg Tab, 50 MG PO DAILY for 30 Days, MG 03/20/24 Information Source: Patient Mode of Arrival: Ambulatory Review of Systems REVIEW OF SYSTEMS: No fever, no chills, or fatigue HEENT: No sore throat, no earache, no congestion, no neck pain. Cardiac: (+) chest pain. No palpitations. Lungs: No shortness of breath, no cough. GI: No nausea, no vomiting, no diarrhea, no constipation, (+) abdominal pain : No dysuria, frequency, or urgency. No hematuria. Musculoskeletal: No joint pain , no joint swelling, no extremity edema. Skin: No rash, no itching. Neuro: No headache, no dizziness, no weakness Vital Signs Vital Signs Date Time Temp Pulse Resp B/P (MAP) Pulse Ox O2 Delivery O2 Flow Rate FiO2 11/30/24 00:37 86 11/30/24 00:05 18 124/79 11/29/24 23:40 97 Room Air* 0 21 11/29/24 23:40 98.3 98.3 Physical Exam General: Awake, alert and oriented. No acute distress. Skin: Skin in warm, dry and intact. Appropriate color for ethnicity. Nailbeds pi nk with no cyanosis. HEENT: The head is normocephalic and atraumatic. Conjunctivae are clear without exudates or hemorrhage. Sclera is non-icteric. EOM are intact. No signs of nystagmus. Eyelids are normal in appearance without swelling or lesions. Oral m ucosa is pink and moist Neck: The neck is supple with normal range of motion. No JVD. Cardiac: Heart rate and rhythm are normal. No murmurs, gallops, or rubs are auscultated. Respiratory: No signs of respiratory distress. Lung sounds are clear in all lobes bilaterally without rales, ronchi, or wheezes. Abdominal: Abdomen is soft, non-tender without distention. Bowel sounds are present and normoactive in all four quadrants. Extremities: Upper and lower extremities are atraumatic in appearance without deformity or edema. Neurological: The patient is awake, alert and oriented to person, place, and time with normal speech. Speech is clear. There is no facial asymmetry. Psychiatric: Appropriate mood and affect. Good judgement and insight. No visual or auditory hallucinations. Past Medical History PAST MEDICAL HISTORY: CVA, DM, High Lipids, HTN Surgical History: Denies all surgeries CARRIAGE OPERATOR History: No Pertinent CARRIAGE OPERATOR History Family History Family History: Reviewed,noncontributory to illness Social History Smoker: Non-Smoker Alcohol: Denies ETOH Use Drugs: Denies Drug Use Lives In: Home Was a procedure done? Was a procedure done?: No EKG EKG : Pulse Rate (adult): 86 Cardiac Rhythm: NSR Hypertrophy: LAE, LVH Comments Left anterior fascicular block Differential Dx Considerations may include: Anemia, electrolyte imbalance, UTI, abdominal pain, chest pain, gastroenteritis, X-Ray, Labs, Meds, VS Vital Signs Date Time Temp Pulse Resp B/P (MAP) Pulse Ox O2 Delivery O2 Flow Rate FiO2 11/30/24 00:37 86 11/30/24 00:05 97 18 124/79 11/29/24 23:47 86 11/29/24 23:40 96 18 97 Room Air* 0 21 11/29/24 23:40 98.3 96 18 124/79 (94) 97 98.3 11/29/24 23:03 86 11/29/24 22:55 97.6 88 16 149/78 (101) 95 97.6 Lab Test 11/30/24 00:20 11/29/24 23:55 11/29/24 23:08 11/29/24 23:00 Range/Units Troponin I High Sensitivity 3 L < 3 L </=34 ng/L Influenza Type A Antigen Negative Negative Influenza Type B Antigen Negative Negative SARS-CoV-2 Antigen (Rapid) Negative NEGATIVE Urine Color Yellow Yellow Urine Clarity Clear Clear Urine pH 6.0 5.0-9.0 Urine Specific Crary 1.011 1.001-1.035 Urine Protein Negative Negative Urine Ketones 1+ H Negative Urine Blood Negative Negative /uL Urine Nitrite Negative Negative Urine Bilirubin Negative Negative Urine Urobilinogen Normal Negative mg/dL Urine Leukocyte Esterase 1+ Negative /uL Urine RBC <1 0 - 4 /hpf Urine Microscopic WBC 1 0-5 /HPF Urine Squamous Epithelial Cells Few <5 /hpf Urine Bacteria None seen None Seen /hpf Urine Hyaline Casts Few 0 - 2 /lpf Urine Mucus Few None Seen Urine Glucose 3+ H Normal mg/dL White Blood Count 10.7 4.4-10.8 10^3/uL Red Blood Count 5.32 H 4.0-5.20 10^6/uL Hemoglobin 14.4 12.2-16.2 g/dL Hematocrit 42.1 36.0-46.0 % Mean Corpuscular Volume 79.1 L 80.0-100.0 fL Mean Corpuscular Hemoglobin 27.0 L 28.0-32.0 pg Mean Corpuscular Hemoglobin Concent 34.2 32.0-36.0 g/dL Red Cell Distribution Width 12.4 11.8-14.3 % Platelet Count 240 140-450 10^3/uL Mean Platelet Volume 8.6 6.9-10.8 fL Neutrophils (%) (Auto) 78.6 37.0-80.0 % Lymphocytes (%) (Auto) 14.0 10.0-50.0 % Monocytes (%) (Auto) 6.4 0.0-12.0 % Eosinophils (%) (Auto) 0.4 0.0-7.0 % Basophils (%) (Auto) 0.6 0.0-2.0 % Neutrophils # (Auto) 8.4 1.6-8.6 10 ^3/uL Lymphocytes # (Auto) 1.5 0.4-5.4 10 ^3/uL Monocytes # (Auto) 0.7 0-1.3 10 ^3/uL Eosinophils # (Auto) 0 0-0.8 10 ^3/uL Basophils # (Auto) 0.1 0-0.2 10 ^3/uL Nucleated Red Blood Cells 0.1 % Sodium Level 138 136-145 mmol/L Potassium Level 2.9 L 3.5-5.1 mmol/L Chloride Level 102 98-107 mmol/L Carbon Dioxide Level 27 20-31 mmol/L Anion Gap 9 5-15 Blood Urea Nitrogen 10 9-23 mg/dL Creatinine 0.80 0.550-1.02 mg/dL Glomerular Filtration Rate Calc 76 >90 mL/min BUN/Creatinine Ratio 12.5 10.0-20.0 Serum Glucose 184 H 74-106 mg/dL Calcium Level 10.6 H 8.7-10.4 mg/dL Total Bilirubin 1.1 H 0.2-1.0 mg/dL Aspartate Amino Transferase (AST) 16 13-40 U/L Alanine Aminotransferase (ALT) 18 7-40 U/L Alkaline Phosphatase 71 46-116 U/L B-Type Natriuretic Peptide 5.87 0-100 pg/mL Total Protein 7.6 5.7-8.2 g/dL Albumin 4.8 3.2-4.8 g/dL Current Medications Medications (Trade) Dose Ordered Sig/Enio Route Start Time Stop Time Status Last Admin Aspirin 324 mg ONCE ONCE PO 11/29/24 23:00 11/29/24 23:01 DC 11/30/24 00:05 Morphine Sulfate 2 mg ONCE ONCE IV 11/29/24 23:00 11/29/24 23:01 DC 11/30/24 00:05 CHEST RADIOGRAPH Indication: cp Technique: Single frontal view of the chest was obtained COMPARISON: XY CHEST PORTABLE on DOS: 08/19/24, XY CHEST PORTABLE on DOS: 05/13/24, XY CHEST XRAY 1 VIEW on DOS: 03/19/24 FINDINGS: Lines and Tubes: None Lungs: Clear Pleura: No effusion. No pneumothorax. Cardiomediastinal contours: Unremarkable Bones: Unremarkable IMPRESSION: 1. No acute disease. Exam: CT CT AB PEL WITH IV CON ONLY History: Left lower quadrant pain, diarrhea COMPARISON: None Technique: Multidetector spiral CT of the abdomen and pelvis was performed from lung bases to pubic symphysis. Intravenous contrast was administered during this examination. Portal venous imaging was obtained. Axial, coronal and sagittal multiplanar reformats were performed by the technologist on a separate workstation. Radiation Dose : 1. Abdomen/Pelvis: CTDIvol 6.2 mGy, DLP 352 mGy*cm. CONTRAST: Type of contrast: Omnipaque Contrast injected: 100 ml Findings: Lung Bases: No acute or significant lung base finding. Normal heart size. No pleural or pericardial effusion. Liver: The liver is normal in size. No focal lesions. Normal hepatic vascular enhancement. Cyst is seen in the hepatic dome measuring up to 5 cm. Additional cyst is seen in the right hepatic lobe which measures up to 2 cm. Diffuse steatosis. Gallbladder and Biliary Tree: Unremarkable Spleen: Unremarkable Pancreas: The pancreas is normal in appearance without focal lesions or abnormal enhancement. Adrenal Glands: Unremarkable Kidneys: No hydronephrosis. Bladder: Unremarkable Bowel: The stomach is grossly normal in appearance. Concentric wall thickening is seen in multiple loops of small bowel in the left hemiabdomen, suggestive of infectious/inflammatory enteritis. No evidence of high-grade small bowel obstruction. The appendix is not visualized; however, no secondary findings of acute appendicitis identified. Moderate to large colonic stool burden. Ascites: Absent Lymphadenopathy: No mesenteric, retroperitoneal or periportal lymphadenopathy. Abdominal Wall and Mesentery: Unremarkable. Vasculature: The visualized abdominal aorta is normal in size and caliber. Abdominal and pelvic vessels demonstrate normal enhancement. Pelvic Organs: Unremarkable Musculoskeletal: No aggressive focal bony lesions, acute fractures or dislocation. IMPRESSION: 1. Concentric wall thickening is seen in multiple loops of small bowel in the left hemiabdomen, suggestive of infectious/inflammatory enteritis. 2. Moderate to large colonic stool burden. Time of 1ST Reevaluation: 00:31 Reevaluation 1ST: Unchanged Patient Education/Counseling: Diagnosis, Treatment Family Education/Counseling: No Family Present Departure 1 Departure Impression: Primary Impression: Chest pain Additional Impressions: Colitis Hypokalemia Disposition: ADMITTED INPATIENT Condition: Stable Comments 74-year-old female with chest pain. Extensive evaluation was performed in attempt to identify or rule out: (See differential diagnosis section) The following tests were ordered, and results were reviewed by me: (See diagnostic results section) The following test were independently interpreted by me: N/A I reviewed and agreed with the following test results read by other providers: N/A I reviewed the following notes from the pt's past medical encounters: (None available at this time) Additional information was gathered from interviewing the following independent historians: N/A Discussion of management or test interpretation with external physician/other qualified health respiratory care instructor: N/A Addressed [ ]one or more chronic illnesses with severe exacerbation, progression, or side effects of treatment: [ ]an acute or chronic illness that poses a threat to life or bodily function: [ ] Decision regarding hospitalization or escalation of hospital level of care: Risk and benefits of admission for further treatment of patient's condition was considered. Due to patient's current clinical condition, high risk of decline and poor outcome if discharged and need for further inpatient management and monitoring, patient will be admitted to the hospital. Drug therapy requiring intensive monitoring for toxicity: N/A Parenteral controlled substances: N/A Decision regarding elective major surgery with identified patient or procedure risk factors: N/A Decision regarding emergency major surgery: N/A Decision not to resuscitate or to de-escalate care because of poor prognosis: N/A Diagnosis or treatment significantly limited by social determinants of health: N/A Decision regarding hospitalization or escalation of hospital level of care: Risks and benefits of admission for further treatment of patient's condition was considered however due to patient's stable condition patient will be discharged to follow up closely or return to care for worsening of condition or inability to follow up. Critical Care Note Critical Care Time?: Yes (35 min-critical care time only) Critical care comment: Chest pains Stability Stability form required: No Heart Score Heart Score: Heart Score Response (Comments) Value History Moderate Suspicious 1 EKG Repolarization Disturb 1 Age >65 2 Risk Factors >3 or Hx ASHD 2 Troponin Normal limit 0 Total 6 I personally scribed for BROCK HOLT MD ([email or web address]) on 11/30/24 at 00:37. Electronically submitted by Satnam Chavez ([email or web address]). I personally scribed for BROCK HOLT MD ([email or web address]) on 11/30/24 at 00:40. Electronically submitted by Satnam Chavez ([email or web address]). I personally scribed for BROCK HOLT MD ([email or web address]) on 11/30/24 at 02:04. Electronically submitted by Satnam Chavez ([email or web address]). BROCK HOLT MD Nov 30, 2024 00:37
--- NOTE | 2024-11-30 00:51 | DVH ---
Exam: CT CT AB PEL WITH IV CON ONLY History: Left lower quadrant pain, diarrhea COMPARISON: None Technique: Multidetector spiral CT of the abdomen and pelvis was performed from lung bases to pubic s ymphysis. Intravenous contrast was administered during this examination. Portal venous imaging was obtained. Axial, coronal and sagittal multiplanar reformats were performed by the technologist on a separate workstation. Radiation Dose : 1. Abdomen/Pelvis: CTDIvol 6.2 mGy, DLP 352 mGy*cm. CONTRAST: Type of contrast: Omnipaque Contrast injected: 100 ml Findings: Lung Bases: No acute or significant lung base finding. Normal heart size. No pleural or pericardial effusion. Liver: The liver is normal in size. No focal lesions. Normal hepatic vascular enhancement. Cyst is s een in the hepatic dome measuring up to 5 cm. Additional cyst is seen in the right hepatic lobe which measures up to 2 cm. Diffuse steatosis. Gallbladder and Biliary Tree: Unremarkable Spleen: Unremarkable Pancreas: The pancreas is normal in appearance without focal lesions or abnormal enhancement. Adrenal Glands: Unremarkable Kidneys: No hydronephrosis. Bladder: Unremarkable Bowel: The stomach is grossly normal in appearance. Concentric wall thickening is seen in multiple lo ops of small bowel in the left hemiabdomen, suggestive of infectious/inflammatory enteritis. No evide nce of high-grade small bowel obstruction. The appendix is not visualized; however, no secondary find ings of acute appendicitis identified. Moderate to large colonic stool burden. Ascites: Absent Lymphadenopathy: No mesenteric, retroperitoneal or periportal lymphadenopathy. Abdominal Wall and Mesentery: Unremarkable. Vasculature: The visualized abdominal aorta is normal in size and caliber. Abdominal and pelvic vess els demonstrate normal enhancement. Pelvic Organs: Unremarkable Musculoskeletal: No aggressive focal bony lesions, acute fractures or dislocation. IMPRESSION: 1. Concentric wall thickening is seen in multiple loops of small bowel in the left hemiabdomen, sugge stive of infectious/inflammatory enteritis. 2. Moderate to large colonic stool burden. Radiation optimization: All CT scans at this facility use at least one of these dose optimization michele hniques: automated exposure control mA and/or kV adjustment per patient size (includes targeted exam s where dose is matched to clinical indication) or iterative reconstruction.
[2024-11-30 03:55] VITALS: PULSE 77; RESP 18; O2SAT 97
[2024-11-30] MEDS: POTASSIUM CHL 20 Meq TABLET PO ONE (04:03)
[2024-11-30] MEDS: MAGNESIUM SULFATE 1GM/100ML 100 ML IV ONE (04:03)
[2024-11-30] MEDS: POTASSIUM CHL 20MEQ/50ML 50 ML IV ONE (04:27)
--- NOTE | 2024-11-30 07:41 | ECG ---
[facility] Test Date: 2024-11-29 Test Time: 22:58:36 Pat Name: BEV TREJO Department: ER Room: 0291T Gender: F Steamfitter Apprentice: RAND : [id number] Requested By: BROCK HOLT Order Number: [id number] Reading MD: Oliver Diaz Measurements Intervals [place] Rate: 86 P: 40 NM: 150 QRS: -40 QRSD: 77 T: 45 QT: 402 QTc: 481 Interpretive Statements Sinus rhythm Probable left atrial enlargement Left anterior fascicular block Left ventricular hypertrophy Borderline T abnormalities, anterior leads Electronically Signed On 11-30-2024 19:21:35 PDT by Oliver Diaz Please click the below link to view image of tracing.
[2024-11-30] MEDS ORDERED: HYDROcodone-ACET 5/325MG TAB PO PRN (08:15)
[2024-11-30] MEDS ORDERED: MORPHINE SULFATE INJ 2 MG/ml SYRG IV PRN ×2 (08:15)
[2024-11-30] MEDS ORDERED: NITROGLYCERIN 0.4 MG SL TAB SL PRN (08:15)
[2024-11-30] MEDS ORDERED: ACETAMINOPHEN 325 MG TAB PO PRN (08:15)
[2024-11-30] MEDS ORDERED: ONDANSETRON HCL 4 MG/2 ML VIAL IV PRN (08:15)
--- NOTE | 2024-11-30 08:15 | DVHHP2 ---
History of Present Illness Reason for Visit: Chest pain History of Present Illness This 74-year-old female with past medical history of CVA, hypertension, DM, and hyperlipidemia presents in the ED with a chief complaint of chest pain. The patient reports intermittent chest pain for the past few weeks worsened prior to ER arrival. She states that she has an upcoming Cardiology appointment. The patient also complains of left lower quadrant abdominal pain associated with diarrhea and headaches for the past three days. The patient denies dizziness, diaphoresis, shortness of breath, nausea, vomiting, or melena. Past Medical History As stated in HPI Past Surgical History Denies Family History Reviewed, non-contributory to the management of this case. Past Social History The patient lives at home, denies smoking, alcohol or illicit drugs abuse. Review of Systems Constitutional: Yes: Malaise; No: Fever, Chills, Sweats, Weakness, Other Eyes: No: Pain, Vision change, Conjunctivae inflammation, Eyelid inflammation, Other, Redness ENT: No: Ear pain, Ear discharge, Nose pain, Nose discharge, Nose congestion, Mouth pain, Mouth swelling, Throat pain, Throat swelling, Other Respiratory: No: Cough, Dry, Shortness of breath, SOB with excertion, Wheezing, Hemoptysis, Pleuritic Pain, Sputum, Wheezing, Other Cardiovascular: Chest Pain; No: Palpitations, Orthopnea, Paroxysmal Noc. Dyspnea, Edema, Lt Headedness, Other Gastrointestinal: Abdominal Pain, Diarrhea; No: Nausea, Vomiting, Constipation, Melena, Hematochezia, Other Genitourinary: No Dysuria, No Frequency, No Incontinence, No Hematuria, No Retention, No Other Musculoskeletal: No: other, neck pain, shoulder pain, arm pain, back pain, hand pain, leg pain, foot pain Skin: No: Rash, Lesions, Jaundice, Bruising, Other Neurological: Weakness (right hemiplegia); No: Numbness, Incoordination, Change in speech, Confusion, Seizures, Other Allergies: Coded Allergies: NO KNOWN ALLERGIES (Unverified , 03/18/24) Exam Vital Signs Vital Signs Date Time Temp Pulse Resp B/P (MAP) Pulse Ox O2 Delivery O2 Flow Rate FiO2 11/30/24 06:57 98.0 76 20 113/51 (71) 97 98.0 11/30/24 03:55 Room Air* 0 21 General Appearance: Alert, Oriented X3, mild distress HEENT: Atraumatic, PERRLA, EOMI, Mucous membr. moist/pink Respiratory: Clear to auscultation, Normal air movement Cardiovascular: Regular rate, Normal S1, Normal S2 Abdominal: Normal bowel sounds, Other (Left lower quadrant tenderness in palpation) Extremities: No clubbing, No cyanosis Skin: No rashes, No breakdown Neuro: Normal speech, Normal tone, Other (Right sided hemiplegia) Psych/Mental Status: Mental status NL Labs/Xrays Labs Test 11/30/24 08:00 11/30/24 02:08 11/29/24 23:55 11/29/24 23:08 Range/Units Troponin I High Sensitivity < 3 L </=34 ng/L Influenza Type A Antigen Negative Negative Influenza Type B Antigen Negative Negative SARS-CoV-2 Antigen (Rapid) Negative NEGATIVE Urine Color Yellow Yellow Urine Clarity Clear Clear Urine pH 6.0 5.0-9.0 Urine Specific [place] 1.011 1.001-1.035 Urine Protein Negative Negative Urine Ketones 1+ H Negative Urine Blood Negative Negative /uL Urine Nitrite Negative Negative Urine Bilirubin Negative Negative Urine Urobilinogen Normal Negative mg/dL Urine Leukocyte Esterase 1+ Negative /uL Urine RBC <1 0 - 4 /hpf Urine Microscopic WBC 1 0-5 /HPF Urine Squamous Epithelial Cells Few <5 /hpf Urine Bacteria None seen None Seen /hpf Urine Hyaline Casts Few 0 - 2 /lpf Urine Mucus Few None Seen Urine Glucose 3+ H Normal mg/dL Test 11/29/24 23:00 Range/Units Eosinophils (%) (Auto) 0.4 0.0-7.0 % Eosinophils # (Auto) 0 0-0.8 10 ^3/uL Basophils # (Auto) 0.1 0-0.2 10 ^3/uL Nucleated Red Blood Cells 0.1 % Total Bilirubin 1.1 H 0.2-1.0 mg/dL Aspartate Amino Transferase (AST) 16 13-40 U/L Alanine Aminotransferase (ALT) 18 7-40 U/L Alkaline Phosphatase 71 46-116 U/L B-Type Natriuretic Peptide 5.87 0-100 pg/mL Total Protein 7.6 5.7-8.2 g/dL Albumin 4.8 3.2-4.8 g/dL Technique: Multidetector spiral CT of the abdomen and pelvis was performed from lung bases to pubic symphysis. Intravenous contrast was administered during this examination. Portal venous imaging was obtained. Axial, coronal and sagittal multiplanar reformats were performed by the technologist on a separate workstation. Radiation Dose : 1. Abdomen/Pelvis: CTDIvol 6.2 mGy, DLP 352 mGy*cm. CONTRAST: Type of contrast: Omnipaque Contrast injected: 100 ml Findings: Lung Bases: No acute or significant lung base finding. Normal heart size. No pleural or pericardial effusion. Liver: The liver is normal in size. No focal lesions. Normal hepatic vascular enhancement. Cyst is seen in the hepatic dome measuring up to 5 cm. Additional cyst is seen in the right hepatic lobe which measures up to 2 cm. Diffuse steatosis. Gallbladder and Biliary Tree: Unremarkable Spleen: Unremarkable Pancreas: The pancreas is normal in appearance without focal lesions or abnormal enhancement. Adrenal Glands: Unremarkable Kidneys: No hydronephrosis. Bladder: Unremarkable Bowel: The stomach is grossly normal in appearance. Concentric wall thickening is seen in multiple loops of small bowel in the left hemiabdomen, suggestive of infectious/inflammatory enteritis. No evidence of high-grade small bowel obstruction. The appendix is not visualized; however, no secondary findings of acute appendicitis identified. Moderate to large colonic stool burden. Ascites: Absent Lymphadenopathy: No mesenteric, retroperitoneal or periportal lymphadenopathy. Abdominal Wall and Mesentery: Unremarkable. Vasculature: The visualized abdominal aorta is normal in size and caliber. Abdominal and pelvic vessels demonstrate normal enhancement. Pelvic Organs: Unremarkable Musculoskeletal: No aggressive focal bony lesions, acute fractures or dislocation. IMPRESSION: 1. Concentric wall thickening is seen in multiple loops of small bowel in the left hemiabdomen, suggestive of infectious/inflammatory enteritis. 2. Moderate to large colonic stool burden. Assessment/Plan Assessment/Plan # Chest pain to rule out ACS Chest pain protocol Cardiology consult Echocardiogram- previous echo revealed EF 60% # acute left lower quadrant abdominal pain, possible colitis # diarrhea Empiric antibiotic with ceftriaxone and metronidazole PPI Clear liquid diet Stool for C diff IV fluid # acute UTI Ceftriaxone Urine culture # hypokalemia Repleted potassium ivf Monitor # diabetes type 2 with hyperglycemia, A1C 9 Insulin sliding scale Lantus # right sided hemiparesis, s/p cva Continue statins and Plavix # hypertension Continue with antihypertensive meds Monitor # hyperlipidemia Statins Lipid panel DVT prophylaxis Medical plan discussed with patient and RN Plan discussed with: Patient My Orders Orders - BISI ELIASP Procedure Category Date Status Time Complete Blood Count LAB 11/30/24 In Process 07:31 Basic Metabolic Panel LAB 11/30/24 In Process 07:31 Magnesium Sulfate ORDERS 11/30/24 Transmitted 07:31 Admit ADMIT 11/30/24 Verified 08:11 Code Status CODE 11/30/24 Verified 08:11 Hydrocodone-Acet PHA 11/30/24 Verified 5/325mg Tab ([place] 08:15 Ondansetron Hcl PHA 11/30/24 Verified (Zofran) 08:15 Fall Risk Precautions [facility] 11/30/[address] 08:11 Complete Blood Count LAB 12/01/24 Verified 04:00 Comprehensive LAB 12/01/24 Verified Metabolic Panel 04:00 Echo 2d Mode Cardiac US 11/30/24 Verified DOP 08:11 Condition: Fair [facility] 11/30/24 Verified 08:11 Enoxaparin Sodium PHA 11/30/24 Verified (Lovenox) 10:00 Acetaminophen Tablet PHA 11/30/24 Verified (Tylenol Tablet) 08:15 Clear Liq Diet DIET 11/30/24 Verified Breakfast Morphine Sulfate PHA 11/30/24 Verified Injection 08:15 Nitroglycerin PHA 11/30/24 Verified Sublingual (Ntrostat 08:15 Morphine Sulfate PHA 11/30/24 Verified Injection 08:15 Stat Ekg For Chest [facility] 11/30/24 Verified Pain 08:11 Notify Md Of Changes [facility] 11/30/24 Verified From Base 08:11 Batch Tank Controller For [facility] 11/30/24 Verified 24 Hours 08:11 Emergency Dysrhythmia [facility] 11/30/24 Verified Protocol 08:11 Rhythm Strips Once [facility] 11/30/24 Verified Every Shift 08:11 Oxygen By Nasal RT 11/30/24 Verified Cannula 08:11 Hemoglobin A1c LAB 11/30/24 Verified 08:11 Date of Service: Nov 30, 2024 Billing Provider: BISI ELIAS Common Visit Codes: [id number] INP/OBS CARE (HIGH) BISI ELIASP Nov 30, 2024 08:15
[2024-11-30 08:19] LABS: Basophils # (auto) 0 10 ^3/uL (0-0.2); Eosinophils # (auto) 0 10 ^3/uL (0-0.8); Neutrophils # (auto) 4.5 10 ^3/uL (1.6-8.6); Nucleated Red Blood Cells % 0.2 %; Platelet Count (auto) 225 10^3/uL (140-450); White Blood Cell 6.5 10^3/uL (4.4-10.8)
[2024-11-30 08:20] LABS: Basophils % (auto) 0.3 % (0.0-2.0); Eosinophils % (auto) 0.6 % (0.0-7.0); Hematocrit 41.5 % (36.0-46.0); Hemoglobin 13.9 g/dL (12.2-16.2); Lymphocytes # (auto) 1.4 10 ^3/uL (0.4-5.4); Lymphocytes % (auto) 21.5 % (10.0-50.0); Mean Corpuscular Hemoglobin 26.4 pg (28.0-32.0); Mean Corpuscular Hgb Conc. 33.5 g/dL (32.0-36.0); Mean Corpuscular Volume 78.9 fL (80.0-100.0); Monocytes # (auto) 0.6 10 ^3/uL (0-1.3); Monocytes % (auto) 9.2 % (0.0-12.0); Neutrophils % (auto) 68.4 % (37.0-80.0); Red Blood Cells 5.26 10^6/uL (4.0-5.20); Red Cell Distribution Width 12.2 % (11.8-14.3)
[2024-11-30 08:27] LABS: Chloride 101 mmol/L (98-107); Sodium 138 mmol/L (136-145)
[2024-11-30 08:28] LABS: Anion Gap 8 (5-15); Carbon Dioxide 29 mmol/L (20-31)
[2024-11-30 08:30] VITALS: PULSE 73; RESP 12; O2SAT 98
[2024-11-30 08:33] LABS: BUN/Creatinine Ratio 14.9 (10.0-20.0); Blood Urea Nitrogen 11 mg/dL (9-23); Glucose 174 mg/dL (74-106); Potassium 3.4 mmol/L (3.5-5.1)
[2024-11-30] MEDS: metroNIDAZOLE 500MG/100ML 100 ML IV SCH ×2 (08:44→17:17)
[2024-11-30 09:12] VITALS: PULSE 59; RESP 16; O2SAT 96
[2024-11-30] MEDS ORDERED: DEXTROSE (50%) 50ML SYRG IV PRN (09:15)
[2024-11-30] MEDS ORDERED: BISM1CAP PO (09:50)
[2024-11-30] MEDS: cefTRIAXone 1GM/50ML D5W 50 ML IV SCH (09:53)
[2024-11-30 10:10] LABS: Triglycerides 57 mg/dL (< 150)
[2024-11-30 10:11] LABS: LDL Cholesterol 18 mg/dL (< 100)
[2024-11-30 10:12] LABS: Cholesterol 87 mg/dL (< 200); HDL Cholesterol 51 mg/dL (40-59)
[2024-11-30] MEDS: amLODIPine BESYLATE 5 MG TAB PO SCH (10:54)
[2024-11-30] MEDS: CLOPIDOGREL BISULFATE 75 MG TAB PO SCH (10:55)
[2024-11-30] MEDS: PANTOPRAZOLE 40 MG/10 ML VIAL INJ IV SCH (10:55)
[2024-11-30] MEDS: ENOXAPARIN SOD 40 MG/0.4 ML SYRINGE SC SCH (10:55)
[2024-11-30] MEDS: LOSARTAN POTASSIUM 50 MG TAB PO SCH (10:56)
[2024-11-30] MEDS: hydroCHLOROthiazide 25 MG TAB PO SCH (10:59)
[2024-11-30] MEDS: SODIUM CHLORIDE 0.9% 1,000 ML IV SCH (11:29)
[2024-11-30] MEDS: InsuLIN REG 1unit/0.01ml Soln (100units/ml) SC SCH (11:30)
[2024-11-30] MEDS: ACCU-CHEK COMFORT CURVE STRIP VI SCH (11:33)
[2024-11-30] MEDS ORDERED: SODIUM CHL 0.9% 100 ML IV SCH (12:45)
[2024-11-30] MEDS: POTASSIUM CHL 20MEQ/50ML 50 ML IV SCH (12:45)
--- NOTE | 2024-11-30 12:53 | DVHINCON2 ---
Date Seen: Nov 30, 2024 Referring Physician Satya Reason for Consultation Chest pain History of Present Illness 74-year-old female with PMH for HTN, HLD, diabetes, CVA with residual right- sided deficit presents to the hospital with chest pain and subtle quadrant abdominal pain and diarrhea. Patient states that symptoms of abdominal pain and chest pain are intermittent. Chest pain noted to be right and left-sided lower thoracic area, nonexertional, worsens with abdominal cramping. Patient has been having diarrhea and was recently prescribed bismuth though has not been taking. Of note patient has scheduled appointment later this month for Cardiology for initial consult though she does not remember with who. Troponin negative x3. Potassium 2.9, CXR negative. CT abdomen showing concentric wall thickening in multiple loops of small bowel and left hemiabdomen suggestive of infectious inflammatory enteritis. Moderate large colonic stool burden. EKG reviewed and shows sinus rhythm at 83 beats per minute, LVH, nonspecific ST and T-wave abnormality. Past Medical History As stated above Past Surgical History As stated above Family History: Patient reports no known family medical history. Family History Denies pertinent family cardiac history Social History Denies alcohol, tobacco, or illicit drug use. Allergies: Coded Allergies: NO KNOWN ALLERGIES (Unverified , 03/18/24) Home Meds Active Scripts Pantoprazole Sodium Sesquihydr (Pantoprazole Sodium) 40 Mg Tab, 40 MG PO DAILY@0600 for 30 Days, #30 TAB Prov:GABRIEL PETTY RESIDENT 05/16/24 Acetaminophen (Acetaminophen) 325 Mg Tab, 650 MG PO Q6HP PRN for 10 Days, #80 TAB Prov:GABRIEL PETTY RESIDENT 05/16/24 Reported Medications Bismuth Subcitrate Potassium-M (Bismuth Subcitrate Pot/Me 140-125-125 mg) 1 Cap Cap, 1 CAP PO DAILY, CAP 11/30/24 Hydrochlorothiazide (Hydrochlorothiazide) 25 Mg Tab, 1 TAB PO DAILY, #30 TAB 5 Refills 03/20/24 Amlodipine Besylate (Amlodipine Besylate) 5 Mg Tab, 10 MG PO DAILY for 30 Days, MG 03/20/24 Aspirin (Aspirin 81 Low Dose) 81 Mg Chw, 81 MG PO DAILY, TAB.CHEW 03/20/24 Atenolol (Atenolol) 50 Mg Tab, 25 MG PO DAILY for 30 Days, MG 03/20/24 Clopidogrel Bisulfate (CLOPIDOGREL) 75 Mg Tab, 75 MG PO DAILY for 30 Days, MG 03/20/24 Atorvastatin Calcium (ATORVASTATIN CALCIUM) 40 Mg Tab, 40 MG PO DAILY, TAB 03/20/24 Oxybutynin Chloride (Oxybutynin Chloride) 5 Mg/5 Ml Syp, 5 MG PO BID, SYP 03/20/24 Losartan Potassium (Losartan Potassium) 50 Mg Tab, 50 MG PO DAILY for 30 Days, MG 03/20/24 Current Medications Current Medications Medications (Trade) Dose Ordered Sig/Enio Route PRN Reason Start Time Stop Time Status Last Admin Acetaminophen/ Hydrocodone Bitart ([place] 5/325MG Tab) 1 tab Q4HP PRN PO MODERATE PAIN (4-6 PAIN SCALE) 11/30/24 08:15 Ondansetron HCl (Zofran) 4 mg Q4HP PRN IV NAUSEA / VOMITING 11/30/24 08:15 Enoxaparin Sodium (Lovenox) 40 mg DAILY SC 11/30/24 10:00 11/30/24 10:55 Acetaminophen (Tylenol Tablet) 650 mg Q6HP PRN PO PAIN SCALE 1-3 OR TEMP>100.4 11/30/24 08:15 Morphine Sulfate 2 mg Q4HPRN PRN IV SEVERE PAIN (7-10 PAIN SCALE) 11/30/24 08:15 Nitroglycerin (Ntrostat Sublingual) 0.4 mg Q5MINP PRN SL FOR CHEST PAIN 11/30/24 08:15 Morphine Sulfate 2 mg Q30M PRN IV FOR CHEST PAIN 11/30/24 08:15 Ceftriaxone Sodium 50 ml @ 100 mls/hr DAILY@09 IV 11/30/24 09:00 11/30/24 09:53 Metronidazole 100 ml @ 100 mls/hr Q8HR IV 11/30/24 08:30 11/30/24 08:44 Pantoprazole Sodium (Protonix) 40 mg DAILY IV 11/30/24 10:00 11/30/24 10:55 Potassium Chloride 50 ml @ 25 mls/hr Q2H IV 11/30/24 12:45 11/30/24 16:44 UNV Diagnostic Test (Pha) (Accu-Chek Comfort Curve T) 1 strip ACHS 11/30/24 11:30 11/30/24 11:33 Insulin Human Regular (InsuLIN R) ACHS SC 11/30/24 11:30 Dextrose 50 ml UD PRN IV Blood Sugar LESS THAN 60 11/30/24 09:15 Insulin Glargine (Lantus) 10 units HS SC 11/30/24 22:00 Sodium Chloride 1,000 ml @ 75 mls/hr [id number] IV 11/30/24 09:15 11/30/24 11:29 Amlodipine Besylate (Norvasc Tablet) 10 mg DAILY PO 11/30/24 10:00 11/30/24 10:54 Clopidogrel Bisulfate (Plavix) 75 mg DAILY PO 11/30/24 10:00 11/30/24 10:55 Hydrochlorothiazide (hydroCHLOROthiazide TABLET) 25 mg DAILY PO 11/30/24 10:00 11/30/24 10:59 Losartan Potassium (Cozaar Tablet) 50 mg DAILY PO 11/30/24 10:00 11/30/24 10:56 Patient Own Medication 81 mg DAILY PO 11/30/24 10:00 UNV Patient Own Medication 25 mg DAILY PO 11/30/24 10:00 UNV Patient Own Medication 40 mg DAILY PO 11/30/24 10:00 UNV Patient Own Medication 5 mg BID PO 11/30/24 10:00 UNV Review of Systems Constitutional: No: Fever, Chills, Sweats, Weakness, Malaise, Other Eyes: No: Pain, Vision change, Conjunctivae inflammation, Eyelid inflammation, Other, Redness ENT: No: Ear pain, Ear discharge, Nose pain, Nose discharge, Nose congestion, Mouth pain, Mouth swelling, Throat pain, Throat swelling, Other Respiratory: No: Cough, Dry, Shortness of breath, SOB with exertion, Wheezing, Hemoptysis, Pleuritic Pain, Sputum, Wheezing, Other Cardiovascular: ; No: Palpitations, Orthopnea, Paroxysmal Noc. Dyspnea, Edema, Lt Headedness, Other positive: Chest Pain Gastrointestinal: No: Nausea, Vomiting, Constipation, Melena, Hematochezia, Other positive: Abdominal Pain, Diarrhea, Genitourinary: No Dysuria, No Frequency, No Incontinence, No Hematuria, No Retention, No Other Musculoskeletal: neck pain; No: other, shoulder pain, arm pain, back pain, hand pain, leg pain, foot pain Skin: No: Rash, Lesions, Jaundice, Bruising, Other Neurological: Other (Dizziness, headache.); No: Weakness, Numbness, Incoordination, Change in speech, Confusion, Seizures Vital Signs Vital Signs Date Time Temp Pulse Resp B/P (MAP) Pulse Ox O2 Delivery O2 Flow Rate FiO2 11/30/24 10:59 130/68 11/30/24 10:15 69 22 96 11/30/24 08:30 Room Air* 0 21 11/30/24 06:57 98.0 98.0 Physical Exam General appearance: Patient is well-developed, well-nourished, in no acute distress. HEENT: Exam shows: Normocephalic, atraumatic, PERRLA, EOMI Neck: Supple, no bruits Chest: Equal chest excursion bilaterally. Breath sounds normal-no rales or wheezes. Heart: Rhythm: Regular rate; no murmur or gallop Abdomen: Exam shows: Soft, nontender, nondistended Musculoskeletal: No clubbing, no cyanosis, no lower extremity edema Dermatology: Skin warm, moist. Neurological: Exam shows: Alert and oriented x4, normal speech right-sided weakness Available prior records, labs, EKG, rhythm strips reviewed and interpreted Labs/Diagnostic Data Labs Test 11/30/24 11:33 11/30/24 08:00 11/30/24 02:08 11/29/24 23:55 Range/Units POC Glucose 130 H 70-106 mg/dl White Blood Count 6.5 # 4.4-10.8 10^3/uL Red Blood Count 5.26 H 4.0-5.20 10^6/uL Hemoglobin 13.9 12.2-16.2 g/dL Hematocrit 41.5 36.0-46.0 % Mean Corpuscular Volume 78.9 L 80.0-100.0 fL Mean Corpuscular Hemoglobin 26.4 L 28.0-32.0 pg Mean Corpuscular Hemoglobin Concent 33.5 32.0-36.0 g/dL Red Cell Distribution Width 12.2 11.8-14.3 % Platelet Count 225 140-450 10^3/uL Mean Platelet Volume 8.8 6.9-10.8 fL Neutrophils (%) (Auto) 68.4 37.0-80.0 % Lymphocytes (%) (Auto) 21.5 10.0-50.0 % Monocytes (%) (Auto) 9.2 0.0-12.0 % Eosinophils (%) (Auto) 0.6 0.0-7.0 % Basophils (%) (Auto) 0.3 0.0-2.0 % Neutrophils # (Auto) 4.5 1.6-8.6 10 ^3/uL Lymphocytes # (Auto) 1.4 0.4-5.4 10 ^3/uL Monocytes # (Auto) 0.6 0-1.3 10 ^3/uL Eosinophils # (Auto) 0 0-0.8 10 ^3/uL Basophils # (Auto) 0 0-0.2 10 ^3/uL Nucleated Red Blood Cells 0.2 % Sodium Level 138 136-145 mmol/L Potassium Level 3.4 L 3.5-5.1 mmol/L Chloride Level 101 98-107 mmol/L Carbon Dioxide Level 29 20-31 mmol/L Anion Gap 8 5-15 Blood Urea Nitrogen 11 9-23 mg/dL Creatinine 0.74 0.550-1.02 mg/dL Glomerular Filtration Rate Calc 84 >90 mL/min BUN/Creatinine Ratio 14.9 10.0-20.0 Serum Glucose 174 H 74-106 mg/dL Hemoglobin A1c 9.6 H <5.7 % A1C Calcium Level 10.0 8.7-10.4 mg/dL Triglycerides Level 57 < 150 mg/dL Cholesterol Level 87 < 200 mg/dL LDL Cholesterol 18 < 100 mg/dL HDL Cholesterol 51 40-59 mg/dL Troponin I High Sensitivity < 3 L </=34 ng/L Influenza Type A Antigen Negative Negative Influenza Type B Antigen Negative Negative SARS-CoV-2 Antigen (Rapid) Negative NEGATIVE Test 11/29/24 23:08 11/29/24 23:00 Range/Units Urine Color Yellow Yellow Urine Clarity Clear Clear Urine pH 6.0 5.0-9.0 Urine Specific [place] 1.011 1.001-1.035 Urine Protein Negative Negative Urine Ketones 1+ H Negative Urine Blood Negative Negative /uL Urine Nitrite Negative Negative Urine Bilirubin Negative Negative Urine Urobilinogen Normal Negative mg/dL Urine Leukocyte Esterase 1+ Negative /uL Urine RBC <1 0 - 4 /hpf Urine Microscopic WBC 1 0-5 /HPF Urine Squamous Epithelial Cells Few <5 /hpf Urine Bacteria None seen None Seen /hpf Urine Hyaline Casts Few 0 - 2 /lpf Urine Mucus Few None Seen Urine Glucose 3+ H Normal mg/dL Total Bilirubin 1.1 H 0.2-1.0 mg/dL Aspartate Amino Transferase (AST) 16 13-40 U/L Alanine Aminotransferase (ALT) 18 7-40 U/L Alkaline Phosphatase 71 46-116 U/L B-Type Natriuretic Peptide 5.87 0-100 pg/mL Total Protein 7.6 5.7-8.2 g/dL Albumin 4.8 3.2-4.8 g/dL Assessment Chest pain - atypical. EKG with nonspecific ST and T-wave abnormality. On Plavix, follow up echo. ACS ruled out. Ischemic workup once abdominal infection diarrhea resolve, inpatient versus outpatient. Abdominal pain, colitis/enteritis - on IV antibiotics. Management per primary team. HX CVA - continue Plavix HTN - stable on current regimen Hypokalemia - monitoring replace electrolytes Case Discussed with Dr Stewart. Continue telemetry monitoring. Follow up echo. Patient will need ischemic workup once abdominal infection, diarrhea resolved. Critical care, time spent: 41 minutes This medical document was created using an electronic medical record system with voice recognition software and computerized dictation system. Although this document has been carefully reviewed, there might still be some phonetic and typographical errors. Occasional wrong-word or ``sound-alike substitutions may have occurred due to the inherent limitations of voice recognition software. These areas are purely typographical due to imperfections of the software programs and do not reflect any compromise in the patient's medical care. Please read the chart carefully and recognize, using context, where these substitutions have occurred. Thank you for allowing me to participate in the management of this patient. The treatment plan was discussed with and agreed upon by patient/family including requesting consultants and ordering of imaging/procedures. Plan discussed with: Patient NYHA Physical activity limitations: NA Date of Service: Nov 30, 2024 Billing Provider: JANET HUYNH Cardiology Common Codes: [id number] INP/OBS CARE (High), [id number] CARE 30-74 MIN JANET HUYNH Nov 30, 2024 12:53
[2024-11-30] MEDS: ATENOLOL 25 MG TAB PO ONE (13:40)
[2024-11-30 17:01] VITALS: BP 133/65; PULSE 62; RESP 16; TEMP 97.4; O2SAT 96
[2024-11-30 20:00] VITALS: PULSE 53; PULSE 63; RESP 20; O2SAT 96
--- NOTE | 2024-11-30 20:26 | DVHINCON2 ---
Date Seen: Nov 30, 2024 Referring Physician Satya Reason for Consultation Chest pain History of Present Illness This is a 74-year-old female with PMH of HTN, HLD, diabetes, CVA with residual right-sided deficit who presented to the ED with c/o chest pain and subtle quadrant abdominal pain and diarrhea. Patient states that symptoms of abdominal pain and chest pain are intermittent. Chest pain noted to be right and left-s ided lower thoracic area, nonexertional, worsens with abdominal cramping. Patient has been having diarrhea and was recently prescribed bismuth though has not been taking. Of note patient has scheduled appointment later this month for Cardiology for initial consult though she does not remember with who. Troponin negative x3. Potassium 2.9, Chest x-ray is negative. CT abdomen showed concentric wall thickening in multiple loops of small bowel and left hemiabdomen suggestive of infectious inflammatory enteritis. Moderate large colonic stool burden. EKG reviewed and shows sinus rhythm at 83 beats per minute, LVH, nonspecific ST and T-wave abnormality. Past Medical History As stated above Past Surgical History As stated above Family History: Patient reports no known family medical history. Allergies: Coded Allergies: NO KNOWN ALLERGIES (Unverified , 03/18/24) Home Meds Active Scripts Pantoprazole Sodium Sesquihydr (Pantoprazole Sodium) 40 Mg Tab, 40 MG PO DAILY@0600 for 30 Days, #30 TAB Prov:GABRIEL PETTY RESIDENT 05/16/24 Acetaminophen (Acetaminophen) 325 Mg Tab, 650 MG PO Q6HP PRN for 10 Days, #80 TAB Prov:GABRIEL PETTY RESIDENT 05/16/24 Reported Medications Bismuth Subcitrate Potassium-M (Bismuth Subcitrate Pot/Me 140-125-125 mg) 1 Cap Cap, 1 CAP PO DAILY, CAP 11/30/24 Hydrochlorothiazide (Hydrochlorothiazide) 25 Mg Tab, 1 TAB PO DAILY, #30 TAB 5 Refills 03/20/24 Amlodipine Besylate (Amlodipine Besylate) 5 Mg Tab, 10 MG PO DAILY for 30 Days, MG 03/20/24 Aspirin (Aspirin 81 Low Dose) 81 Mg Chw, 81 MG PO DAILY, TAB.CHEW 03/20/24 Atenolol (Atenolol) 50 Mg Tab, 25 MG PO DAILY for 30 Days, MG 03/20/24 Clopidogrel Bisulfate (CLOPIDOGREL) 75 Mg Tab, 75 MG PO DAILY for 30 Days, MG 03/20/24 Atorvastatin Calcium (ATORVASTATIN CALCIUM) 40 Mg Tab, 40 MG PO DAILY, TAB 03/20/24 Oxybutynin Chloride (Oxybutynin Chloride) 5 Mg/5 Ml Syp, 5 MG PO BID, SYP 03/20/24 Losartan Potassium (Losartan Potassium) 50 Mg Tab, 50 MG PO DAILY for 30 Days, MG 03/20/24 Current Medications Current Medications Medications (Trade) Dose Ordered Sig/Enio Route PRN Reason Start Time Stop Time Status Last Admin Acetaminophen/ Hydrocodone Bitart ([place] 5/325MG Tab) 1 tab Q4HP PRN PO MODERATE PAIN (4-6 PAIN SCALE) 11/30/24 08:15 Ondansetron HCl (Zofran) 4 mg Q4HP PRN IV NAUSEA / VOMITING 11/30/24 08:15 Enoxaparin Sodium (Lovenox) 40 mg DAILY SC 11/30/24 10:00 11/30/24 10:55 Acetaminophen (Tylenol Tablet) 650 mg Q6HP PRN PO PAIN SCALE 1-3 OR TEMP>100.4 11/30/24 08:15 Morphine Sulfate 2 mg Q4HPRN PRN IV SEVERE PAIN (7-10 PAIN SCALE) 11/30/24 08:15 Nitroglycerin (Ntrostat Sublingual) 0.4 mg Q5MINP PRN SL FOR CHEST PAIN 11/30/24 08:15 Morphine Sulfate 2 mg Q30M PRN IV FOR CHEST PAIN 11/30/24 08:15 Ceftriaxone Sodium 50 ml @ 100 mls/hr DAILY@09 IV 11/30/24 09:00 11/30/24 09:53 Metronidazole 100 ml @ 100 mls/hr Q8HR IV 11/30/24 08:30 11/30/24 14:23 DC 11/30/24 08:44 Pantoprazole Sodium (Protonix) 40 mg DAILY IV 11/30/24 10:00 11/30/24 10:55 Potassium Chloride 50 ml @ 25 mls/hr Q2H IV 11/30/24 12:45 11/30/24 16:44 DC 11/30/24 14:45 Diagnostic Test (Pha) (Accu-Chek Comfort Curve T) 1 strip ACHS 11/30/24 11:30 11/30/24 17:13 Insulin Human Regular (InsuLIN R) ACHS SC 11/30/24 11:30 11/30/24 17:17 Dextrose 50 ml UD PRN IV Blood Sugar LESS THAN 60 11/30/24 09:15 Insulin Glargine (Lantus) 10 units HS SC 11/30/24 22:00 Sodium Chloride 1,000 ml @ 75 mls/hr [id number] IV 11/30/24 09:15 11/30/24 11:29 Amlodipine Besylate (Norvasc Tablet) 10 mg DAILY PO 11/30/24 10:00 11/30/24 10:54 Clopidogrel Bisulfate (Plavix) 75 mg DAILY PO 11/30/24 10:00 11/30/24 10:55 Hydrochlorothiazide (hydroCHLOROthiazide TABLET) 25 mg DAILY PO 11/30/24 10:00 11/30/24 10:59 Losartan Potassium (Cozaar Tablet) 50 mg DAILY PO 11/30/24 10:00 11/30/24 10:56 Aspirin 81 mg DAILY PO 12/01/24 10:00 Atenolol (Tenormin Tablet) 25 mg DAILY PO 12/01/24 10:00 Atorvastatin Calcium (Lipitor) 40 mg HS PO 11/30/24 22:00 Oxybutynin Chloride (Ditropan Tablet) 5 mg BID PO 11/30/24 22:00 Sodium Chloride 100 ml @ 50 mls/hr Q2H IV 11/30/24 12:45 11/30/24 12:54 DC Metronidazole 100 ml @ 100 mls/hr Q8H IV 11/30/24 16:30 11/30/24 17:17 Review of Systems Constitutional: No: Fever, Chills, Sweats, Weakness, Malaise, Other Eyes: No: Pain, Vision change, Conjunctivae inflammation, Eyelid inflammation, Other, Redness ENT: No: Ear pain, Ear discharge, Nose pain, Nose discharge, Nose congestion, Mouth pain, Mouth swelling, Throat pain, Throat swelling, Other Respiratory: No: Cough, Dry, Shortness of breath, SOB with exertion, Wheezing, Hemoptysis, Pleuritic Pain, Sputum, Wheezing, Other Cardiovascular: ; No: Palpitations, Orthopnea, Paroxysmal Noc. Dyspnea, Edema, Lt Headedness, Other positive: Chest Pain Gastrointestinal: No: Nausea, Vomiting, Constipation, Melena, Hematochezia, Other positive: Abdominal Pain, Diarrhea, Genitourinary: No Dysuria, No Frequency, No Incontinence, No Hematuria, No Retention, No Other Musculoskeletal: neck pain; No: other, shoulder pain, arm pain, back pain, hand pain, leg pain, foot pain Skin: No: Rash, Lesions, Jaundice, Bruising, Other Neurological: Other (Dizziness, headache.); No: Weakness, Numbness, Incoordination, Change in speech, Confusion, Seizures Vital Signs Vital Signs Date Time Temp Pulse Resp B/P (MAP) Pulse Ox O2 Delivery O2 Flow Rate FiO2 11/30/24 17:01 97.4 62 16 133/65 (87) 96 97.4 11/30/24 09:12 Room Air* 0 21 Physical Exam GENERAL: Awake, alert, oriented. LUNGS: Clear. CARDIOVASCULAR: Heart sounds are good. ABDOMEN: Soft. NEURO: Right sided weakness. Labs/Diagnostic Data Labs Test 11/30/24 11:33 11/30/24 08:00 11/30/24 02:08 11/29/24 23:55 Range/Units POC Glucose 130 H 70-106 mg/dl White Blood Count 6.5 # 4.4-10.8 10^3/uL Red Blood Count 5.26 H 4.0-5.20 10^6/uL Hemoglobin 13.9 12.2-16.2 g/dL Hematocrit 41.5 36.0-46.0 % Mean Corpuscular Volume 78.9 L 80.0-100.0 fL Mean Corpuscular Hemoglobin 26.4 L 28.0-32.0 pg Mean Corpuscular Hemoglobin Concent 33.5 32.0-36.0 g/dL Red Cell Distribution Width 12.2 11.8-14.3 % Platelet Count 225 140-450 10^3/uL Mean Platelet Volume 8.8 6.9-10.8 fL Neutrophils (%) (Auto) 68.4 37.0-80.0 % Lymphocytes (%) (Auto) 21.5 10.0-50.0 % Monocytes (%) (Auto) 9.2 0.0-12.0 % Eosinophils (%) (Auto) 0.6 0.0-7.0 % Basophils (%) (Auto) 0.3 0.0-2.0 % Neutrophils # (Auto) 4.5 1.6-8.6 10 ^3/uL Lymphocytes # (Auto) 1.4 0.4-5.4 10 ^3/uL Monocytes # (Auto) 0.6 0-1.3 10 ^3/uL Eosinophils # (Auto) 0 0-0.8 10 ^3/uL Basophils # (Auto) 0 0-0.2 10 ^3/uL Nucleated Red Blood Cells 0.2 % Sodium Level 138 136-145 mmol/L Potassium Level 3.4 L 3.5-5.1 mmol/L Chloride Level 101 98-107 mmol/L Carbon Dioxide Level 29 20-31 mmol/L Anion Gap 8 5-15 Blood Urea Nitrogen 11 9-23 mg/dL Creatinine 0.74 0.550-1.02 mg/dL Glomerular Filtration Rate Calc 84 >90 mL/min BUN/Creatinine Ratio 14.9 10.0-20.0 Serum Glucose 174 H 74-106 mg/dL Hemoglobin A1c 9.6 H <5.7 % A1C Calcium Level 10.0 8.7-10.4 mg/dL Triglycerides Level 57 < 150 mg/dL Cholesterol Level 87 < 200 mg/dL LDL Cholesterol 18 < 100 mg/dL HDL Cholesterol 51 40-59 mg/dL Troponin I High Sensitivity < 3 L </=34 ng/L Influenza Type A Antigen Negative Negative Influenza Type B Antigen Negative Negative SARS-CoV-2 Antigen (Rapid) Negative NEGATIVE Test 11/29/24 23:08 11/29/24 23:00 Range/Units Urine Color Yellow Yellow Urine Clarity Clear Clear Urine pH 6.0 5.0-9.0 Urine Specific Gill 1.011 1.001-1.035 Urine Protein Negative Negative Urine Ketones 1+ H Negative Urine Blood Negative Negative /uL Urine Nitrite Negative Negative Urine Bilirubin Negative Negative Urine Urobilinogen Normal Negative mg/dL Urine Leukocyte Esterase 1+ Negative /uL Urine RBC <1 0 - 4 /hpf Urine Microscopic WBC 1 0-5 /HPF Urine Squamous Epithelial Cells Few <5 /hpf Urine Bacteria None seen None Seen /hpf Urine Hyaline Casts Few 0 - 2 /lpf Urine Mucus Few None Seen Urine Glucose 3+ H Normal mg/dL Total Bilirubin 1.1 H 0.2-1.0 mg/dL Aspartate Amino Transferase (AST) 16 13-40 U/L Alanine Aminotransferase (ALT) 18 7-40 U/L Alkaline Phosphatase 71 46-116 U/L B-Type Natriuretic Peptide 5.87 0-100 pg/mL Total Protein 7.6 5.7-8.2 g/dL Albumin 4.8 3.2-4.8 g/dL Assessment Chest pain- atypical. Abdominal pain, colitis/enteritis. HX CVA. HTN. Hypokalemia. Plan/Recommendation I agree with your ongoing assessment and care of plan. Patient has been seen by Baldemar Remy NP on my behalf, him and I discussed the plan with the patient. Echocardiogram. Ischemic workup once abdominal infection diarrhea resolve, inpatient versus outpatient. [place] for pain management. Amlodipine, Atenolol, Losartan. Aspirin, Lipitor. IV antibiotics as ordered. DVT and GI prophylactics. Morphine for pain management. Additional plan as per the hospital course. Plan discussed with: Patient NYHA Physical activity limitations: NA Date of Service: Nov 30, 2024 Billing Provider: JILLIAN PEREZ MD Cardiology Common Codes: [id number] INP/OBS CARE (High), [id number] CARE 30-74 MIN JILLIAN PEREZ MD Nov 30, 2024 20:17
[2024-11-30 21:00] VITALS: BP_SYST 111; BP_SYST 129; BP_DIAS 62; BP_DIAS 66; PULSE 20; TEMP 97.8; TEMP 98.6; O2SAT 95; O2SAT 96
--- NOTE | 2024-11-30 21:03 | DVHSR ---
APPROVED REPORT EXAM: Two-dimensional and M-mode echocardiogram with Doppler and color Doppler. Blood Pressure: 113/51 mmHg INDICATION Chest Pain R/O ACS RISK FACTORS Height: 5' 4", Weight: 132 DIMENSIONS LVDd3.8 (3.8-5.7cm)LA (2D)3.0 (1.9-4.0cm)Aortic Root3.0 (2.0-3.7cm) LVDs2.6 (2.5-4.0cm)LA (MM) (1.9-4.0cm)Aortic Cusp Exc1.9 (1.5-2.0cm) EF (%) 60.0 (55-70%)Rt. Atrium3.0 (1.9-4.0cm)Asc. Aorta cm IVSd0.8 (0.7-1.1cm)RV (D) (1.8-2.4cm) PWd0.8 (0.7-1.1cm) Mitral Valve MitralMitral Stenosis E wave1.00m/sMV Mean GR.mmHg A wave1.30m/sMV Peak GR.mmHg E/A ratio0.82D MVAcm2 Aortic Valve Aortic ValveAortic Stenosis V11.00m/César Mean GR.4mmHg V21.30m/César Peak GR.7mmHg LVOT Diameter2.1 (1.8-2.4cm)Doppler AVA2.66cm2 AI P 1/2 [id number] Pulmonic Valve V20.50m/s Tricuspid Valve TR Velocity2.60m/s [id number] Conclusion LV EF IS 70% MILD AORTIC REGURGITATION NORMAL SIZE OF CARDIAC CHAMBERS NORMAL VALVES NO EFFUSION NORMAL RV FUNCTION NORMAL RVSP IS 33 MM OF HG AND IS NORMAL
[2024-11-30] MEDS: ATORVASTATIN 20 MG TAB PO SCH (21:31)
[2024-11-30] MEDS: OXYBUTYNIN CHL 5 MG TAB PO SCH (21:31)
[2024-11-30] MEDS: INSULIN LANTUS (GLARGINE) 1 /0.01ml (100units/ml) SC SCH (21:56)
[2024-12-01] VITALS (9 sets, daily range): BP systolic 109–150; BP diastolic 59–70; PULSE 47–68; RESP 12–20; TEMP 97.4–98.7; O2SAT 97–100
[2024-12-01 07:13] LABS: Basophils # (auto) 0 10 ^3/uL (0-0.2); Eosinophils # (auto) 0.1 10 ^3/uL (0-0.8); Monocytes # (auto) 0.4 10 ^3/uL (0-1.3); Neutrophils # (auto) 1.6 10 ^3/uL (1.6-8.6); White Blood Cell 3.5 10^3/uL (4.4-10.8)
[2024-12-01 07:15] LABS: Basophils % (auto) 0.4 % (0.0-2.0); Eosinophils % (auto) 1.8 % (0.0-7.0); Hematocrit 39.3 % (36.0-46.0); Hemoglobin 13.2 g/dL (12.2-16.2); Lymphocytes # (auto) 1.4 10 ^3/uL (0.4-5.4); Lymphocytes % (auto) 40.9 % (10.0-50.0); Mean Corpuscular Hemoglobin 26.5 pg (28.0-32.0); Mean Corpuscular Hgb Conc. 33.6 g/dL (32.0-36.0); Monocytes % (auto) 10.8 % (0.0-12.0); Neutrophils % (auto) 46.1 % (37.0-80.0); Nucleated Red Blood Cells % 0.1 %; Platelet Count (auto) 202 10^3/uL (140-450); Red Blood Cells 4.98 10^6/uL (4.0-5.20); Red Cell Distribution Width 12.5 % (11.8-14.3)
[2024-12-01 07:21] LABS: Alanine Aminotransferase 17 U/L (7-40); Albumin 4.1 g/dL (3.2-4.8); Alkaline Phosphatase 58 U/L (46-116); Anion Gap 9 (5-15); Aspartate Aminotransferase 19 U/L (13-40); Carbon Dioxide 26 mmol/L (20-31); Glucose 79 mg/dL (74-106); Sodium 143 mmol/L (136-145); Total Protein 6.6 g/dL (5.7-8.2)
[2024-12-01 07:24] LABS: BUN/Creatinine Ratio 9.4 (10.0-20.0); Bilirubin, Total 1.5 mg/dL (0.2-1.0); Blood Urea Nitrogen < 5 mg/dL (9-23); Chloride 108 mmol/L (98-107); Potassium 3.2 mmol/L (3.5-5.1)
[2024-12-01] MEDS ORDERED: ATENOLOL 25 MG TAB PO SCH (10:00)
[2024-12-01] MEDS: POTASSIUM EFFERVESENT TAB 25 MEQ PO ONE (10:52)
[2024-12-01] MEDS: amLODIPine BESYLATE 5 MG TAB PO SCH (10:59)
[2024-12-01] MEDS: ASPirin 81 mg TAB PO SCH (11:00)
[2024-12-01] MEDS ORDERED: LACTULOSE 20Gm/30ML SOLN PO PRN (14:00)
[2024-12-01] MEDS: LACTULOSE 20Gm/30ML SOLN PO ONE (14:18)
--- NOTE | 2024-12-01 14:36 | ECG ---
[facility] Test Date: 2024-11-29 Test Time: 23:47:19 Pat Name: BEV TREJO Department: ER Room: [facility] Gender: F Developing Machine Tender: : 1950 Requested By: BROCK HOLT Order Number: [id number] Reading MD: Oliver Diaz Measurements Intervals [place] Rate: 86 P: 44 TX: 150 QRS: -41 QRSD: 75 T: 0 QT: 408 QTc: 488 Interpretive Statements Sinus rhythm Probable left atrial enlargement Left anterior fascicular block Abnormal R-wave progression, late transition LVH with secondary repolarization abnormality Borderline prolonged QT interval Electronically Signed On 12-01-2024 19:10:06 PDT by Oliver Diaz Please click the below link to view image of tracing.
--- NOTE | 2024-12-01 14:46 | ECG ---
[facility] Test Date: 2024-11-30 Test Time: 01:55:40 Pat Name: BEV TREJO Department: ER Room: [facility]1T B Gender: F Mirror Specialist: : 1950 Requested By: BROCK HOLT Order Number: [id number] Reading MD: Oliver Diaz Measurements Intervals [place] Rate: 83 P: 33 AL: 160 QRS: -38 QRSD: 72 T: 163 QT: 502 QTc: 590 Interpretive Statements Sinus rhythm Probable left atrial enlargement Abnormal R-wave progression, early transition LVH with secondary repolarization abnormality Prolonged QT interval Electronically Signed On 12-03-2024 22:31:02 PDT by Oliver Diaz Please click the below link to view image of tracing.
--- NOTE | 2024-12-01 16:17 | DVHPNRES ---
Progress Note Date Seen: Dec 01, 2024 Resident Creating Document: LIZZ TANGKAREL RESIDENT Medical Necessity Reason Pt with a Central, PICC or Fol: No Subjective Review of Systems Patient was a 74-year-old female with a past medical history of hypertension, hyperlipidemia, CVA with residual weakness on the right side presented to the ED with a chief complaint of left lower abdominal pain for the past 4-5 days. Patient reports that since the past 3 weeks she has been having episodes of chest pain associated with nausea and episodes of vomiting, no blood in vomitus following which she went to her primary provider and she was treated with quadruple therapy for H pylori. Patient reports that episodes of nausea and vomiting have decreased and she is feeling better but he started to have left- sided lower abdominal pain since the past 4-5 days. Patient has a history of exploratory laparotomy following perforated appendicitis in 2021. Since then patient reports passing stool every 2-3 days and sometimes she has to take stool softeners. Patient also reports that since the last few weeks she has been feeling dizzy when she gets up from the bed but denies shortness of breath, palpitations, confusion, blurred vision, decreased strength. Patient was admitted for further workup Past medical history: As per HPI Past surgical history: Exploratory laparotomy for perforated appendicitis Social history: Patient lives daughter and denies smoking, alcohol, drug use Home medications: Aspirin 81 mg, clopidogrel 75 mg, atorvastatin 40 mg, losartan 50 mg, hydrochlorothiazide 25 mg, atenolol 50 mg, amlodipine 10mg Review of systems Patient seen and examined at the bedside Patient reports that the last bowel movement was about 4 days ago which was loose, not watery and she is passing gas Reports left-lower abdominal pain which is constant and does not increase or decrease with food Patient denied chest pain, nausea, vomiting, headache, palpitations. Objective vital signs Vital Sign Date Time Temp Pulse Resp B/P (MAP) Pulse Ox O2 Delivery O2 Flow Rate FiO2 12/01/24 10:59 150/62 12/01/24 08:45 98.4 64 18 97 98.4 12/01/24 08:15 Room Air* 0 21 Total Intake and Output 11/30/24 11/30/24 12/01/24 15:00 23:00 07:00 Intake Total 350 ml 200 ml 240 ml Balance 350 ml 200 ml 240 ml medications Current Medications Medications Dose Ordered Sig/Enio Route Start Time Stop Time Status Last Admin Dose Admin Ondansetron HCl 4 mg Q4HP PRN IV 11/30/24 08:15 Enoxaparin Sodium 40 mg DAILY SC 11/30/24 10:00 12/01/24 11:01 40 MG Acetaminophen 650 mg Q6HP PRN PO 11/30/24 08:15 Nitroglycerin 0.4 mg Q5MINP PRN SL 11/30/24 08:15 Morphine Sulfate 2 mg Q30M PRN IV 11/30/24 08:15 Ceftriaxone Sodium 50 ml @ 100 mls/hr DAILY@09 IV 11/30/24 09:00 12/01/24 10:52 100 MLS/HR Pantoprazole Sodium 40 mg DAILY IV 11/30/24 10:00 12/01/24 10:56 40 MG Diagnostic Test (Pha) 1 strip ACHS 11/30/24 11:30 12/01/24 11:30 1 STRIP Insulin Human Regular ACHS SC 11/30/24 11:30 11/30/24 17:17 2 UNITS Dextrose 50 ml UD PRN IV 11/30/24 09:15 Insulin Glargine 10 units HS SC 11/30/24 22:00 Clopidogrel Bisulfate 75 mg DAILY PO 11/30/24 10:00 12/01/24 11:00 75 MG Hydrochlorothiazide 25 mg DAILY PO 11/30/24 10:00 12/01/24 10:58 25 MG Losartan Potassium 50 mg DAILY PO 11/30/24 10:00 12/01/24 10:58 50 MG Aspirin 81 mg DAILY PO 12/01/24 10:00 12/01/24 11:00 81 MG Atorvastatin Calcium 40 mg HS PO 11/30/24 22:00 11/30/24 21:31 40 MG Metronidazole 100 ml @ 100 mls/hr Q8H IV 11/30/24 16:30 12/01/24 09:05 100 MLS/HR Amlodipine Besylate 5 mg DAILY PO 12/01/24 10:00 12/01/24 10:59 5 MG Lactulose 30 ml DAILYPRN PRN PO 12/01/24 14:00 Sucralfate 1 gm BID@0600,2200 PO 12/01/24 22:00 Examination Constitutional: Patient was alert and oriented to time, place and person and does not appear to be acute distress Gen - no pallor, no icterus, no cyanosis, no clubbing, no LAD, no edema . Skin - Patients skin is warm and dry. HEENT - normocephalic, atraumatic, moist mucous membranes. Neck - full ROM, no LAD Pulmonary - B/L equal air entry no crackles , no wheezing, no stridor. cardiovascular - normal S1,S2 heard. no murmurs heard. peripheral pulses normal radial 2+, pedal 2+. GI - soft abdomen with tenderness to palpation in the left lower quadrant. no hepatospleenomegaly. Bowel sounds normoactive Neurological -left upper and lower extremity strength 5/5, right upper and lower extremity strength 4/5, no facial droop, normal speech, no tremor, no sensory deficiets. laboratory and microbiology Laboratory Tests 12/01/24 06:00 Test 12/01/24 06:00 Range/Units Serum Glucose 79 74-106 mg/dL Microbiology Date/Time Source Procedure Growth Status 11/30/24 08:40 Blood Blood Culture - Preliminary NO GROWTH AFTER 24 HOURS OF INCUBATION. Resulted 11/29/24 23:08 Voided Urine Urine Culture - Preliminary Resulted Problem List/Assessment/Plan Problem List/Assessment/Plan # Acute intractable abdominal pain # Acute infectious/inflammatory enteritis # Constipation # dyspepsia # suspected acute gastritis - CT abdomen pelvis with IV contrast concentric wall thickening in multiple loops of small bowel in the left trudy-abdomen and moderate to large colonic stool burden - stool occult blood pending - on clear liquid diet - IV antibiotics ceftriaxone and metronidazole - lactulose for constipation - Protonix and sucralfate - patient will be monitored and diet will be advanced as tolerated # hypertensive heart disease # history of CVA X3 ( residual right-sided weakness ) - continued on aspirin, clopidogrel, atorvastatin - continued on home BP medications losartan, hydrochlorothiazide, atenolol, amlodipine # hypokalemia - replenished DVT prophylaxis: Enoxaparin PUD prophylaxis: Protonix Goals of care discussed with the patient and the daughter for over 25 minutes. Full code Plan discussed with Dr. Tabares Plan discussed with: Patient, Daughter My Orders My Orders Orders - MOE TANG RESIDENT Procedure Category Date Status Time Amlodipine Tablet PHA 12/01/24 In Process (Norvasc Tablet) 10:00 Lactulose Oral PHA 3/17/25 In Process 14:00 Sucralfate Susp PHA 12/01/24 In Process (Carafate Susp) 22:00 Stool Occult Blood LAB 12/01/24 Logged 14:00 Date of Service: Dec 01, 2024 Billing Provider: SATISH TABARES MD Common Visit Codes: [id number] INP/OBS CARE(HIGH) MOE TANG RESIDENT Dec 01, 2024 16:17 SATISH TABARES MD Dec 01, 2024 16:19
[2024-12-01] MEDS: ATENOLOL 25 MG TAB PO ONE (16:40)
--- NOTE | 2024-12-01 18:52 | DVHPN2 ---
Progress Note - Dictate Date Seen: Dec 01, 2024 Medical Necessity Reason Pt with a Central, PICC or Fol: No Subjective Patient was seen and evaluated in follow up. Patient is complaining of loweft sided lower abdominal pain. She reports that the last bowel movement was about 4 days ago which was loose, not watery and she is passing gas. K 3.2. Echocardiogram. shows an EF of 70%, mild aortic regurgitation. Telemetry reviewed. vital signs Vital Sign Date Time Temp Pulse Resp B/P (MAP) Pulse Ox O2 Delivery O2 Flow Rate FiO2 12/01/24 16:51 98.7 68 18 127/70 (89) 100 98.7 12/01/24 08:15 Room Air* 0 21 Total Intake and Output 11/30/24 11/30/24 12/01/24 15:00 23:00 07:00 Intake Total 350 ml 200 ml 240 ml Balance 350 ml 200 ml 240 ml medications Current Medications Medications Dose Ordered Sig/Enio Route Start Time Stop Time Status Last Admin Dose Admin Ondansetron HCl 4 mg Q4HP PRN IV 11/30/24 08:15 Enoxaparin Sodium 40 mg DAILY SC 11/30/24 10:00 12/01/24 11:01 40 MG Acetaminophen 650 mg Q6HP PRN PO 11/30/24 08:15 Nitroglycerin 0.4 mg Q5MINP PRN SL 11/30/24 08:15 Morphine Sulfate 2 mg Q30M PRN IV 11/30/24 08:15 Ceftriaxone Sodium 50 ml @ 100 mls/hr DAILY@09 IV 11/30/24 09:00 12/01/24 10:52 100 MLS/HR Diagnostic Test (Pha) 1 strip ACHS 11/30/24 11:30 12/01/24 16:52 1 STRIP Insulin Human Regular ACHS SC 11/30/24 11:30 11/30/24 17:17 2 UNITS Dextrose 50 ml UD PRN IV 11/30/24 09:15 Insulin Glargine 10 units HS SC 11/30/24 22:00 Clopidogrel Bisulfate 75 mg DAILY PO 11/30/24 10:00 12/01/24 11:00 75 MG Hydrochlorothiazide 25 mg DAILY PO 11/30/24 10:00 12/01/24 10:58 25 MG Losartan Potassium 50 mg DAILY PO 11/30/24 10:00 12/01/24 10:58 50 MG Aspirin 81 mg DAILY PO 12/01/24 10:00 12/01/24 11:00 81 MG Atorvastatin Calcium 40 mg HS PO 11/30/24 22:00 11/30/24 21:31 40 MG Metronidazole 100 ml @ 100 mls/hr Q8H IV 11/30/24 16:30 12/01/24 16:35 100 MLS/HR Amlodipine Besylate 5 mg DAILY PO 12/01/24 10:00 12/01/24 10:59 5 MG Lactulose 30 ml DAILYPRN PRN PO 12/01/24 14:00 Sucralfate 1 gm BID@0600,2200 PO 12/01/24 22:00 Atenolol 50 mg DAILY PO 12/02/24 10:00 Pantoprazole Sodium 40 mg DAILY@0600 PO 12/02/24 06:00 objective GENERAL: Awake, alert, oriented. LUNGS: Clear. CARDIOVASCULAR: Heart sounds are good. ABDOMEN: Soft. NEURO: Right sided weakness. laboratory and microbiology Laboratory Tests 12/01/24 06:00 Test 12/01/24 06:00 Range/Units Serum Glucose 79 74-106 mg/dL Problem List Chest pain- atypical. Abdominal pain, colitis/enteritis. HX CVA. HTN. Hypokalemia. Assessment/Plan Continued all current supportive medical care. [place] for pain management. Amlodipine, Atenolol, Losartan. Aspirin, Lipitor. IV antibiotics as ordered. DVT and GI prophylactics. Morphine for pain management. Additional plan as per the hospital course. Plan discussed with: Patient JILLIAN PEREZ MD Dec 01, 2024 18:52
[2024-12-01] MEDS: SUCRALFATE 1 GM/10 ML ORAL SUSP PO SCH (21:16)
[2024-12-02 01:00] VITALS: BP 116/75; PULSE 60; RESP 60; TEMP 98.7; O2SAT 100
[2024-12-02 05:00] VITALS: BP 127/73; PULSE 55; RESP 16; TEMP 98; O2SAT 100
[2024-12-02] MEDS: PANTOPRAZOLE 40 MG TAB PO SCH (05:46)
[2024-12-02 07:26] LABS: Basophils # (auto) 0 10 ^3/uL (0-0.2); Basophils % (auto) 0.7 % (0.0-2.0); Eosinophils # (auto) 0.1 10 ^3/uL (0-0.8); Eosinophils % (auto) 1.7 % (0.0-7.0); Hematocrit 39.2 % (36.0-46.0); Hemoglobin 13.4 g/dL (12.2-16.2); Lymphocytes # (auto) 1.7 10 ^3/uL (0.4-5.4); Lymphocytes % (auto) 42.2 % (10.0-50.0); Mean Corpuscular Hemoglobin 27.2 pg (28.0-32.0); Mean Corpuscular Hgb Conc. 34.3 g/dL (32.0-36.0); Mean Corpuscular Volume 79.4 fL (80.0-100.0); Monocytes # (auto) 0.4 10 ^3/uL (0-1.3); Neutrophils # (auto) 1.8 10 ^3/uL (1.6-8.6); Neutrophils % (auto) 45.4 % (37.0-80.0); Platelet Count (auto) 229 10^3/uL (140-450); Red Blood Cells 4.93 10^6/uL (4.0-5.20); Red Cell Distribution Width 12.5 % (11.8-14.3)
[2024-12-02 07:35] LABS: Anion Gap 8 (5-15); Carbon Dioxide 29 mmol/L (20-31); Chloride 106 mmol/L (98-107); Potassium 3.7 mmol/L (3.5-5.1); Sodium 143 mmol/L (136-145)
[2024-12-02 07:41] LABS: Glucose 93 mg/dL (74-106)
[2024-12-02 07:44] LABS: BUN/Creatinine Ratio 7.6 (10.0-20.0); Blood Urea Nitrogen < 5 mg/dL (9-23)
[2024-12-02 08:00] VITALS: PULSE 63; RESP 18
[2024-12-02 09:00] VITALS: BP 124/58; PULSE 55; RESP 16; TEMP 97.9; O2SAT 97
[2024-12-02] MEDS: ATENOLOL 25 MG TAB PO SCH (09:17)
[2024-12-02 13:00] VITALS: BP 154/71; PULSE 70; RESP 18; TEMP 98.2; O2SAT 97
[2024-12-02] MEDS ORDERED: AUG875T PO (13:30)
[2024-12-02] MEDS ORDERED: ATEN-60 PO (13:30)
[2024-12-02 15:39] VITALS: BP 177/69; PULSE 71; TEMP 36.8
--- NOTE | 2024-12-02 19:52 | DVHDSRES ---
Discharge Summary Date of Admission Resident Creating Document: MOE TANG RESIDENT Nov 30, 2024 at 08:11 Date of Discharge: Dec 02, 2024 Admitting Diagnosis # Chest pain to rule out ACS # acute left lower quadrant abdominal pain, possible colitis # diarrhea # acute UTI # hypokalemia # diabetes type 2 with hyperglycemia, A1C 9 # right sided hemiparesis, s/p cva # hypertension # hyperlipidemia Wounds: none Labs/Diagnostic Data: Laboratory Results Test 12/02/24 11:33 12/02/24 06:04 12/01/24 06:00 11/30/24 08:00 POC Glucose 108 mg/dl (70-106) White Blood Count 4.0 10^3/uL (4.4-10.8) Red Blood Count 4.93 10^6/uL (4.0-5.20) Hemoglobin 13.4 g/dL (12.2-16.2) Hematocrit 39.2 % (36.0-46.0) Mean Corpuscular Volume 79.4 fL (80.0-100.0) Mean Corpuscular Hemoglobin 27.2 pg (28.0-32.0) Mean Corpuscular Hemoglobin Concent 34.3 g/dL (32.0-36.0) Red Cell Distribution Width 12.5 % (11.8-14.3) Platelet Count 229 10^3/uL (140-450) Mean Platelet Volume 8.9 fL (6.9-10.8) Neutrophils (%) (Auto) 45.4 % (37.0-80.0) Lymphocytes (%) (Auto) 42.2 % (10.0-50.0) Monocytes (%) (Auto) 10.0 % (0.0-12.0) Eosinophils (%) (Auto) 1.7 % (0.0-7.0) Basophils (%) (Auto) 0.7 % (0.0-2.0) Neutrophils # (Auto) 1.8 10 ^3/uL (1.6-8.6) Lymphocytes # (Auto) 1.7 10 ^3/uL (0.4-5.4) Monocytes # (Auto) 0.4 10 ^3/uL (0-1.3) Eosinophils # (Auto) 0.1 10 ^3/uL (0-0.8) Basophils # (Auto) 0 10 ^3/uL (0-0.2) Nucleated Red Blood Cells 0.0 % Sodium Level 143 mmol/L (136-145) Potassium Level 3.7 mmol/L (3.5-5.1) Chloride Level 106 mmol/L (98-107) Carbon Dioxide Level 29 mmol/L (20-31) Anion Gap 8 (5-15) Blood Urea Nitrogen < 5 mg/dL (9-23) Creatinine 0.66 mg/dL (0.550-1.02) Glomerular Filtration Rate Calc 91 mL/min (>90) BUN/Creatinine Ratio 7.6 (10.0-20.0) Serum Glucose 93 mg/dL (74-106) Calcium Level 10.0 mg/dL (8.7-10.4) Total Bilirubin 1.5 mg/dL (0.2-1.0) Aspartate Amino Transferase (AST) 19 U/L (13-40) Alanine Aminotransferase (ALT) 17 U/L (7-40) Alkaline Phosphatase 58 U/L (46-116) Total Protein 6.6 g/dL (5.7-8.2) Albumin 4.1 g/dL (3.2-4.8) Hemoglobin A1c 9.6 % A1C (<5.7) Triglycerides Level 57 mg/dL (< 150) Cholesterol Level 87 mg/dL (< 200) LDL Cholesterol 18 mg/dL (< 100) HDL Cholesterol 51 mg/dL (40-59) Test 11/30/24 02:08 11/29/24 23:55 11/29/24 23:08 11/29/24 23:00 Troponin I High Sensitivity < 3 ng/L (</=34) Influenza Type A Antigen Negative (Negative) Influenza Type B Antigen Negative (Negative) SARS-CoV-2 Antigen (Rapid) Negative (NEGATIVE) Urine Color Yellow (Yellow) Urine Clarity Clear (Clear) Urine pH 6.0 (5.0-9.0) Urine Specific [place] 1.011 (1.001-1.035) Urine Protein Negative (Negative) Urine Ketones 1+ (Negative) Urine Blood Negative /uL (Negative) Urine Nitrite Negative (Negative) Urine Bilirubin Negative (Negative) Urine Urobilinogen Normal mg/dL (Negative) Urine Leukocyte Esterase 1+ /uL (Negative) Urine RBC <1 /hpf (0 - 4) Urine Microscopic WBC 1 /HPF (0-5) Urine Squamous Epithelial Cells Few /hpf (<5) Urine Bacteria None seen /hpf (None Seen) Urine Hyaline Casts Few /lpf (0 - 2) Urine Mucus Few (None Seen) Urine Glucose 3+ mg/dL (Normal) B-Type Natriuretic Peptide 5.87 pg/mL (0-100) Other Laboratory Tests 12/02/24 06:04 Brief Hx & Hospital Course: HPI Patient was a 74-year-old female with a past medical history of hypertension, hyperlipidemia, CVA with residual weakness on the right side presented to the ED with a chief complaint of left lower abdominal pain for the past 4-5 days. Patient reports that since the past 3 weeks she has been having episodes of chest pain associated with nausea and episodes of vomiting, no blood in vomitus following which she went to her primary provider and she was treated with quadruple therapy for H pylori. Patient reports that episodes of nausea and vomiting have decreased and she is feeling better but he started to have left- sided lower abdominal pain since the past 4-5 days. Patient has a history of exploratory laparotomy following perforated appendicitis in 2021. Since then patient reports passing stool every 2-3 days and sometimes she has to take stool softeners. Patient also reports that since the last few weeks she has been feeling dizzy when she gets up from the bed but denies shortness of breath, palpitations, confusion, blurred vision, decreased strength. Patient was admitted for further workup Past medical history: As per [facility] Past surgical history: Exploratory laparotomy for perforated appendicitis Social history: Patient lives daughter and denies smoking, alcohol, drug use Home medications: Aspirin 81 mg, clopidogrel 75 mg, atorvastatin 40 mg, losartan 50 mg, hydrochlorothiazide 25 mg, atenolol 50 mg, amlodipine 10mg Brief hospital course Patient came to the hospital with a chief complaint of abdominal pain. Patient left lower quadrant pain and tenderness following which CT abdomen pelvis with IV contrast was done which showed concentric wall thickening in multiple loops of small bowel in the left trudy-abdomen and moderate to large colonic stool burden. Patient was started on clear liquid diets and started with IV antibiotics. Lactulose was given for constipation. Overnight patient reported 3 bowel movements with significant improvement in her symptoms. Patient also reported dizziness at home when she gets up from the bed, while she was in the hospital was noted on telemetry that her heart rate went down into the 50s and she has been taking atenolol 50 mg at home. Initially atenolol was stopped but patient had episodes of heart rate in the 110s following which atenolol was initiated and the patient was advised to take a lower dose of atenolol 25 mg at home. Patient discharged to home in stable condition. Discharge plan Medications: Augmentin 875 b.i.d. for 5 days Continue home medications, changed atenolol from 50 mg to 25 mg daily Follow up with the PCP in 1 week Diet: Advised to continue full liquid diet for 7-10 days and then advance diet as tolerated Consults/Reason for consult none Operations or Procedures Echocardiogram LV EF IS 70% MILD AORTIC REGURGITATION NORMAL SIZE OF CARDIAC CHAMBERS NORMAL VALVES NO EFFUSION NORMAL RV FUNCTION NORMAL RVSP IS 33 MM OF HG AND IS NORMAL Condition at Discharge: Good Final Diagnosis/Problems List # Acute intractable abdominal pain # Acute infectious/inflammatory enteritis # Constipation # dyspepsia # suspected acute gastritis Discharge Disposition: Home Discharge Instruct/Medications Diet: See Comment Diet comment: Full liquid diet for 7-10 days then transition to regular diet as tolerated Activity: No Restrictions, As Tolerated Follow Up/Referral: Follow up with the PCP in one week Medications: as per EMR Discharge Statement: "Patient was advised to return to the ER or call 911 if any headaches, dizziness, shortness of breath, chest pain, abdominal pain, bleeding, fevers, or worsening of medical condition. Patient was counseled about treatment plan, medications, possible side effects, patientverbalized understanding. All questions were answered to the best of my ability. This discharge took greater then 30 minutes in planning, reviewing documentation, counseling the patient, and discussing with other team members." ASSESSMENT ASSESSMENT Assessment # Acute intractable abdominal pain # Acute infectious/inflammatory enteritis # Constipation # dyspepsia # suspected acute gastritis Date of Service: Dec 02, 2024 Billing Provider: SATISH TABARES MD Common Visit Codes: 53079-DCZ/OBS DISCH DAY >30min MOE TANG RESIDENT Dec 02, 2024 19:52 SATISH TABARES MD Dec 04, 2024 08:39
--- NOTE | 2024-12-02 21:39 | DVHPN2 ---
Progress Note - Dictate Date Seen: Dec 02, 2024 Medical Necessity Reason Pt with a Central, PICC or Fol: No Subjective Patient was seen and evaluated in follow up. Patient has no new complaints at this time. Patient denies any cardiac symptoms. Patient is cardiac stable for discharge. Telemetry reviewed. vital signs Vital Sign Date Time Temp Pulse Resp B/P (MAP) Pulse Ox O2 Delivery O2 Flow Rate FiO2 12/02/24 15:39 36.8 71 12/02/24 13:00 18 154/71 (98) 97 12/02/24 08:00 Room Air* 0 21 Total Intake and Output 12/01/24 12/01/24 12/02/24 15:00 23:00 07:00 Intake Total 480 ml 500 ml 340 ml Balance 480 ml 500 ml 340 ml objective GENERAL: Awake, alert, oriented. LUNGS: Clear. CARDIOVASCULAR: Heart sounds are good. ABDOMEN: Soft. NEURO: Right sided weakness. laboratory and microbiology Laboratory Tests 12/02/24 06:04 Test 12/02/24 06:04 Range/Units Serum Glucose 93 74-106 mg/dL Problem List Chest pain- atypical. Abdominal pain, colitis/enteritis. HX CVA. HTN. Hypokalemia. Assessment/Plan Continued all current supportive medical care. [place] for pain management. Amlodipine, Atenolol, Losartan. Aspirin, Lipitor. IV antibiotics as ordered. DVT and GI prophylactics. Morphine for pain management. Additional plan as per the hospital course. Dietary Evaluation Review Comments: 1) Advance to [facility] 60gm + cardiac diet 2) Refer CDE on DC 3) Continue current plan of care Expected Outcomes/Goals: Pt will meet >75% estimated needs Fu 2-3 days Plan discussed with: Patient JILLIAN PEREZ MD Dec 02, 2024 21:39
== END 2024-12-02 16:50 | disposition home or self-care (01) | DRG 241 ==
LOC: ER 22:57 → OVERFLOW 11-30 08:11 → TELE-WESTW 11-30 16:23
PROVIDERS: ADMIT Student in an Organized Health Care Education/Training Program; ATTEND Student in an Organized Health Care Education/Training Program
DX: K29.00 Acute gastritis without bleeding (principal); I69.351 Hemiplegia and hemiparesis following cerebral infarction affecting right dominant side; I11.9 Hypertensive heart disease without heart failure; A09 Infectious gastroenteritis and colitis, unspecified; N39.0 Urinary tract infection, site not specified; K59.00 Constipation, unspecified; E11.65 Type 2 diabetes mellitus with hyperglycemia; E78.5 Hyperlipidemia, unspecified; E87.6 Hypokalemia; Z79.82 Long term (current) use of aspirin; Z79.02 Long term (current) use of antithrombotics/antiplatelets; Z79.899 Other long term (current) drug therapy
CPT/HCPCS: 36415; 71045; 74177; 80048; 80053; 80061; 81001; 82962; 83036; 83880; 84484; 85025; 87040; 87086; 87426; 87804; 93005; 93306; 96365; 96375; 99291; G0378; J1815; J2470; J3490

== ENCOUNTER 2025-09-09 13:50 | Inpatient (IN) | payer OTHER ==
[~2025-09-09] VITALS: Ht 162.6 cm; Wt 63.3 kg
[~2025-09-09 13:50] MED LIST changes: +ATEN-60 PO; -ATEN50TA PO; +AUG875T PO; -OXYB5SYP4 PO
[2025-09-09 14:48] LABS: Hematocrit 38.6 % (36.0-46.0); Hemoglobin 12.7 g/dL (12.2-16.2); Mean Corpuscular Hemoglobin 26.3 pg (28.0-32.0); Mean Corpuscular Volume 79.8 fL (80.0-100.0); Nucleated Red Blood Cells % 0.2 %
[2025-09-09 14:54] LABS: Chloride 104 mmol/L (98-107); Potassium 3.6 mmol/L (3.5-5.1); Sodium 139 mmol/L (136-145)
[2025-09-09 14:55] LABS: Anion Gap 9 (5-15); Calcium 9.7 mg/dL (8.7-10.4); Carbon Dioxide 26 mmol/L (20-31)
[2025-09-09 15:00] LABS: BUN/Creatinine Ratio 9.9 (10.0-20.0); Blood Urea Nitrogen 7 mg/dL (9-23); Glucose 285 mg/dL (74-106)
--- NOTE | 2025-09-09 15:00 | ED.PDOC ---
History of Present Illness HPI Comments 75-year-old female presents to the ER with grandson with prior medical history of CVA, diabetes, high lipids, hypertension and a chief complaint of the headache. Patient reports on having had bilateral temporal headache for the past two weeks associated with left lower quadrant pain which radiates up to the chest. Patient came in today due from a home nurse referring her to go to the ER. Denies any other symptoms at this time. Denies chills, fever, N/V/D, SOB. No other associated symptoms, modifiers, recent injuries or sick contacts present at this time. Chief Complaint: Headache Time Seen by MD: 14:30 Primary Care Provider: NONE Reviewed Notes: Nurses Notes, Medications, Allergies Allergies: Coded Allergies: NO KNOWN ALLERGIES (Unverified , 03/18/24) Home Meds Active Scripts Atenolol (Atenolol) 25 Mg Tab, 25 MG PO DAILY for 30 Days, #30 TAB 0 Refills Prov:MOE TANG RESIDENT 12/02/24 Amoxicillin & Pot Clavulanate (AUGMENTIN TABLET) 875 Mg Tb, 875 MG PO BID for 5 Days, #10 TAB 0 Refills Prov:MOE TANG RESIDENT 12/02/24 Pantoprazole Sodium Sesquihydr (Pantoprazole Sodium) 40 Mg Tab, 40 MG PO DAILY@0600 for 30 Days, #30 TAB Prov:GABRIEL PETTY RESIDENT 05/16/24 Acetaminophen (Acetaminophen) 325 Mg Tab, 650 MG PO Q6HP PRN for 10 Days, #80 TAB Prov:GABRIEL PETTY RESIDENT 05/16/24 Reported Medications Hydrochlorothiazide (Hydrochlorothiazide) 25 Mg Tab, 1 TAB PO DAILY, #30 TAB 5 Refills 03/20/24 Amlodipine Besylate (Amlodipine Besylate) 5 Mg Tab, 10 MG PO DAILY for 30 Days, MG 03/20/24 Aspirin (Aspirin 81 Low Dose) 81 Mg Chw, 81 MG PO DAILY, TAB.CHEW 03/20/24 Clopidogrel Bisulfate (CLOPIDOGREL) 75 Mg Tab, 75 MG PO DAILY for 30 Days, MG 03/20/24 Atorvastatin Calcium (ATORVASTATIN CALCIUM) 40 Mg Tab, 40 MG PO DAILY, TAB 03/20/24 Losartan Potassium (Losartan Potassium) 50 Mg Tab, 50 MG PO DAILY for 30 Days, MG 03/20/24 Information Source: Patient, Relative (GrandChild) Mode of Arrival: Ambulatory Severity: Moderate Timing: Weeks Duration: Since onset Prehospital treatment: None Past Medical History PAST MEDICAL HISTORY: CVA, DM, High Lipids, HTN Surgical History: Denies all surgeries 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 Family History Family History: Reviewed,noncontributory to illness, Unknown Social History Smoker: Non-Smoker Alcohol: Denies ETOH Use Drugs: Denies Drug Use Lives In: Home Constitutional: denies: chills, diaphoresis, fatigue, fever, malaise, sweats, weakness, others EENTM: denies: blurred vision, double vision, ear bleeding, ear discharge, ear drainage, ear pain, ear ringing, eye pain, eye redness, hearing loss, mouth pain, mouth swelling, nasal discharge, nose bleeding, nose congestion, nose pain, photophobia, tearing, throat pain, throat swelling, voice changes, others Respiratory: denies: cough, hemoptysis, orthopnea, SOB at rest, shortness of breath, SOB with excertion, stridor, wheezing, others Cardiovascular: reports: chest pain; denies: dizzy spells, diaphoresis, Dyspnea on exertion, edema, irregular heart beat, left arm pain, lightheadedness, palpitations, PND, syncope, others Gastrointestinal: reports: abdominal pain; denies: abdomen distended, blood streaked bowels, constipated, diarrhea, dysphagia, difficulty swallowing, hematemesis, melena, nausea, poor appetite, poor fluid intake, rectal bleeding, rectal pain, vomiting, others Genitourinary: denies: abnormal vagina bleeding, burning, dyspareunia, dysuria, flank pain, frequency, hematuria, incontinence, pain, , vagina discharge, urgency, others Neurological: reports: headache; denies: dizziness, fainting, left sided numbness, left sided weakness, numbness, paresthesia, pre-existing deficit, right sided numbness, right sided weakness, seizure, speech problems, tingling, tremors, weakness, others Musculoskeletal: denies: back pain, gout, joint pain, joint swelling, muscle pain, muscle stiffness, neck pain, others Integumetry: denies: bruises, change in color, change in hair/nails, dryness, laceration, lesions, lumps, rash, wounds, others Allergic/Immunocompromised: denies: Difficulty Healing, Frequent Infections, Hi ves, Itching, others Hematologic/Lymphatic: denies: anemia, blood clots, easy bleeding, easy bruising, swollen glands, others Endocrine: denies: excessive hunger, excessive sweating, excessive thirst, excessive urination, flushing, intolerance to cold, intolerance to heat, unexplained weight gain, unexplained weight loss, others Psychiatric: denies: anxiety, bipolar disorder, depression, hopeless, panic disorder, schizophrenia, sleepless, suicidal, others All Other Systems: Reviewed and Negative Physical Exam General Appearance: Moderate Distress, Normal HEENT: Normal ENT Inspection, Pharynx Normal, TMs Normal Neck: Full Range of Motion, Non-Tender, Normal, Normal Inspection Respiratory: Chest Non-Tender, Lungs Clear, No Accessory Muscle Use, No Respiratory Distress, Normal Breath Sounds Cardiovascular: No Edema, No JVD, No Murmur, No Gallop, Normal Peripheral Pulses, Regular Rate/Rhythm Breast Exam: Deferred Gastrointestinal: No Organomegaly, Non Tender, No Pulsatile Mass, Normal Bowel Sounds, Soft Genitalia: Deferred Pelvic: Deferred Rectal: Deferred Extremities: No calf tenderness, Normal capillary refill, Normal inspection, Normal range of motion, Non-tender, No pedal edema Musculoskeletal : Apperance: Normal Neurologic: Alert, power house control room operator II-XII nml as Tested, No Motor Deficits, Normal Affect, Normal Mood, No Sensory Deficits Cerebellar Function: Normal Reflexes: Normal Skin: Dry, Normal Color, Warm Peripheral Pulses: 3+ Radial (R), 3+ Radial (L) Lymphatic: No Adenopathy Was a procedure done? Was a procedure done?: No EKG EKG : Pulse Rate (adult): 104 [place]: Normal Cardiac Rhythm: ST Block: None Hypertrophy: None ST: Normal Differential Dx Considerations may include: Migraine Electrolyte imbalance X-Ray, Labs, Meds, VS Vital Signs Date Time Temp Pulse Resp B/P (MAP) Pulse Ox O2 Delivery O2 Flow Rate FiO2 09/09/25 15:00 104 09/09/25 13:54 98.1 88 18 170/90 97 98.1 Lab Test 09/09/25 14:42 Range/Units White Blood Count 4.6 4.4-10.8 10^3/uL Red Blood Count 4.84 4.0-5.20 10^6/uL Hemoglobin 12.7 12.2-16.2 g/dL Hematocrit 38.6 36.0-46.0 % Mean Corpuscular Volume 79.8 L 80.0-100.0 fL Mean Corpuscular Hemoglobin 26.3 L 28.0-32.0 pg Mean Corpuscular Hemoglobin Concent 32.9 32.0-36.0 g/dL Red Cell Distribution Width 12.9 11.8-14.3 % Platelet Count 193 140-450 10^3/uL Mean Platelet Volume 8.6 6.9-10.8 fL Neutrophils (%) (Auto) 64.2 37.0-80.0 % Lymphocytes (%) (Auto) 26.9 10.0-50.0 % Monocytes (%) (Auto) 7.2 0.0-12.0 % Eosinophils (%) (Auto) 0.8 0.0-7.0 % Basophils (%) (Auto) 0.9 0.0-2.0 % Neutrophils # (Auto) 3.0 1.6-8.6 10 ^3/uL Lymphocytes # (Auto) 1.2 0.4-5.4 10 ^3/uL Monocytes # (Auto) 0.3 0-1.3 10 ^3/uL Eosinophils # (Auto) 0 0-0.8 10 ^3/uL Basophils # (Auto) 0 0-0.2 10 ^3/uL Nucleated Red Blood Cells 0.2 % Sodium Level 139 136-145 mmol/L Potassium Level 3.6 3.5-5.1 mmol/L Chloride Level 104 98-107 mmol/L Carbon Dioxide Level 26 20-31 mmol/L Anion Gap 9 5-15 Blood Urea Nitrogen 7 L 9-23 mg/dL Creatinine 0.71 0.550-1.02 mg/dL Glomerular Filtration Rate Calc 88 >90 mL/min BUN/Creatinine Ratio 9.9 L 10.0-20.0 Serum Glucose 285 H 74-106 mg/dL Calcium Level 9.7 8.7-10.4 mg/dL Patient alert. Complaining of headache. Vitals stable. Answering questions. WBC within normal limits. Hemoglobin within normal limits. Blood pressure elevated. Was given clonidine. Denies chest pain. Denies shortness a breath. No leg swelling. No neurological deficits. Abdomen is soft nontender. No acute process. Blood sugar elevated. Explained to the patient. Was told to follow up with her primary care physician. Was told to come back if there is any problem. Patient does not want to be discharged. She states that she has been having headache. CT scan of the head reviewed does show possible old infarct. Possible TIA. Time of 1ST Reevaluation: 14:58 Reevaluation 1ST: Improved Patient Education/Counseling: Diagnosis, Treatment, Prognosis Family Education/Counseling: Diagnosis, Treatment, Prognosis SEPSIS Sepsis Screen Date sepsis recognized/suspect: Sep 09, 2025 Time Sepsis recognized/suspect: 1355 Recent Procedure: No On Antibiotic Therapy: No Respiratory Rate >20: No Heart Rate >90: No Temp<36 C (96.8 F) or >38.3 C: No SBP <90 or MAP <65 mmHG: No New Acute Mental Status Change: No Is the patient on CPAP, BIPAP,: No Physician Orders Head Without Contrast (09/09/25 14:29) Urinalysis (09/09/25 14:29) Vital Signs Date Time Temp Pulse Resp B/P (MAP) Pulse Ox O2 Delivery O2 Flow Rate FiO2 09/09/25 15:00 104 09/09/25 13:54 98.1 88 18 170/90 97 98.1 Laboratory Tests Test 09/09/25 14:42 White Blood Count 4.6 10^3/uL (4.4-10.8) Departure 1 Departure Time of Disposition: 15:04 Impression: Primary Impression: Autonomic disorder Additional Impressions: Hypertensive urgency Uncontrolled diabetes mellitus Qualified Codes: E13.65 - Other specified diabetes mellitus with hyperglycemia Disposition: ADMITTED INPATIENT Admit to: Med Surg Condition: Guarded Critical Care Note Critical Care Time?: No Stability Stability form required: No Heart Score Heart Score: Heart Score Response (Comments) Value History N/A 0 EKG N/A 0 Age N/A 0 Risk Factors N/A 0 Troponin N/A 0 Total 0 I personally scribed for GINGER CHAPIN MD ([email or web address]) on 09/09/25 at 15:00. Electronically submitted by Leif Fritz ([email or web address]). GINGER CHAPIN MD Sep 09, 2025 15:00
--- NOTE | 2025-09-09 15:18 | DVH ---
EXAM: CT HEAD WITHOUT CONTRAST INDICATION: headache TECHNIQUE: CT of the head without intravenous contrast. Radiation Dose : 1. Head: CT Dose: CTDI volume is 52.33 mGy. Dose-length product is 926.68 mGy*cm The dose indicators for CT are the volume Computed Tomography (CT) Dose Index (CTDIvol) and the Dose Length Product (DLP), and are measured in units of mGy and mGy-cm, respectively. These indicators are not patient dose, but values generated from the CT scanner acquisition factors. The report includes radiation exposure data for exposures received during this examination. COMPARISON: MRI BRAIN HEAD WO CONTRAST on DOS: 05/14/24, CT HEAD WITHOUT CONTRAST on DOS: 05/13/24 FINDINGS: There is no evidence of acute intracranial hemorrhage, extra-axial collection, mass effect, midline shift, herniation or hydrocephalus. Chronic appearing left thalamic lacunar infarct. The ventricles, sulci and cisterns are age appropriate. The stroud-white differentiation is intact. Patchy periventricular and subcortical white matter hypoattenuation is nonspecific but may be related to small vessel ischemic disease. The visualized paranasal sinuses and mastoid air cells are clear. The surrounding soft tissues and osseous structures are unremarkable. IMPRESSION: 1. No acute intracranial abnormality. 2. 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 Radiation optimization: All CT scans at this facility use at least one of these dose optimization techniques: automated exposure control mA and/or kV adjustment per patient size (includes targeted exams where dose is matched to clinical indication) or iterative reconstruction.
[2025-09-09 19:49] LABS: Urine Protein, UAD Negative (Negative)
--- NOTE | 2025-09-09 23:53 | DVHHPRES ---
History of Present Illness Resident Creating Document: YASIR KUHN RESIDENT History of Present Illness Tiffanie Dumont is a 75-year-old female with past medical history of stroke with residual left-sided weakness, diabetes mellitus, hypertension, dyslipidemia presented to the hospital with complaints of headache and chest pain since 2 weeks. she also complains of associated dizziness, mostly when she stands up from a sitting position. She rates the chest pain for on 10 in intensity, sharp, on and off and radiating to the left side of abdomen. As per the patient's daughter, nurse practitioner visited the patient's home, blood glucose and blood pressure was elevated. she denies any fever, shortness of breath, vomiting or diarrhea. PMHx:stroke with residual left-sided weakness, diabetes mellitus, hypertension, dyslipidemia PSHx: None Family history: nonrelevant Social history: denies smoking, alcohol, illicit drug use. Lives in [place] with daughter Home medication: clopidogrel, atorvastatin, amlodipine, hydrochlorothiazide, losartan, metformin, insulin, cetirizine, pantoprazole Allergic history: no known allergies Review of Systems Review of Systems General: patient denies fever, fatigue, weaknes, sweating, any recent changes in appetite and weight HEENT: complaints of headache and dizziness Cardiovascular: complaints of chest pain Respiratory: No cough, and wheezing. Gastrointestinal: Denies nausea, vomiting, dysphagia, odynophagia, heartburn, abdominal pain, flatulence, bloating, diarrhea, constipation, change in stool, or blood in stool. Genitourinary: No dysuria, hematuria, discharge, frequency, urgency, nocturia, incontinence, and urinary retention. Endocrine: No heat or cold intolerance, polydipsia, polyuria, and polyphagia. Neurological: No dizziness, extremity weakness and numbness, tremors, gait disturbance, seizures, and memory impairment. Psychiatric: Denies depression, anxiety,or insomnia. Musculoskeletal: Denies neck pain, stiffness and swelling, back pain, muscle weakness, joint pain, stiffness, swelling, or limited range of motion. Skin: No rashes, itching, skin lesion, changes in hair, nail, skin texture and breast. Hematologic/Lymphatic: Denies easy bruising, bleeding tendencies, or lymph node enlargement. Allergies: Coded Allergies: NO KNOWN ALLERGIES (Unverified , 03/18/24) Medications Current Medications Medications Dose Ordered Sig/Enio Route Start Time Stop Time Status Last Admin Dose Admin Enoxaparin Sodium 40 mg DAILY SC 09/10/25 10:00 Exam Vital Signs Vital Signs Date Time Temp Pulse Resp B/P (MAP) Pulse Ox O2 Delivery O2 Flow Rate FiO2 09/09/25 21:47 65 16 157/72 (100) 98 09/09/25 18:03 98.2 98.2 Exam General Appearance: Alert, Oriented X3, Cooperative, No acute distress HEENT: Atraumatic, PERRLA, EOMI, Mucous membrane moist/pink Respiratory: Clear to auscultation, Normal air movement Cardiovascular: Regular rate, Normal S1, Normal S2, No murmurs, chest wall tenderness present Abdominal: Normal bowel sounds, Soft, No tenderness, No hepatospenomegaly, No masses Extremities: No clubbing, No cyanosis, No edema, Normal pulses, No tenderness/swelling Skin: No rashes, No breakdown, No significant lesion Neuro: Normal gait, Normal speech, Strength at 5/5 X4 ext, Normal tone, Sensation intact, Cranial nerves 3-12 NL, Reflexes 2+ Psych/Mental Status: Mental status NL, Mood NL Labs/Xrays Labs Test 09/09/25 19:11 09/09/25 14:42 Range/Units Urine Color Light-yellow Yellow Urine Clarity Clear Clear Urine pH 7.0 5.0-9.0 Urine Specific [place] 1.011 1.001-1.035 Urine Protein Negative Negative Urine Ketones Negative Negative Urine Blood Negative Negative /uL Urine Nitrite Negative Negative Urine Bilirubin Negative Negative Urine Urobilinogen Normal Negative mg/dL Urine Leukocyte Esterase Negative Negative /uL Urine RBC <1 0 - 4 /hpf Urine Microscopic WBC < 1 0-5 /HPF Urine Squamous Epithelial Cells Few <5 /hpf Urine Bacteria None seen None Seen /hpf Urine Glucose 4+ H Normal mg/dL White Blood Count 4.6 4.4-10.8 10^3/uL Red Blood Count 4.84 4.0-5.20 10^6/uL Hemoglobin 12.7 12.2-16.2 g/dL Hematocrit 38.6 36.0-46.0 % Mean Corpuscular Volume 79.8 L 80.0-100.0 fL Mean Corpuscular Hemoglobin 26.3 L 28.0-32.0 pg Mean Corpuscular Hemoglobin Concent 32.9 32.0-36.0 g/dL Red Cell Distribution Width 12.9 11.8-14.3 % Platelet Count 193 140-450 10^3/uL Mean Platelet Volume 8.6 6.9-10.8 fL Neutrophils (%) (Auto) 64.2 37.0-80.0 % Lymphocytes (%) (Auto) 26.9 10.0-50.0 % Monocytes (%) (Auto) 7.2 0.0-12.0 % Eosinophils (%) (Auto) 0.8 0.0-7.0 % Basophils (%) (Auto) 0.9 0.0-2.0 % Neutrophils # (Auto) 3.0 1.6-8.6 10 ^3/uL Lymphocytes # (Auto) 1.2 0.4-5.4 10 ^3/uL Monocytes # (Auto) 0.3 0-1.3 10 ^3/uL Eosinophils # (Auto) 0 0-0.8 10 ^3/uL Basophils # (Auto) 0 0-0.2 10 ^3/uL Nucleated Red Blood Cells 0.2 % Sodium Level 139 136-145 mmol/L Potassium Level 3.6 3.5-5.1 mmol/L Chloride Level 104 98-107 mmol/L Carbon Dioxide Level 26 20-31 mmol/L Anion Gap 9 5-15 Blood Urea Nitrogen 7 L 9-23 mg/dL Creatinine 0.71 0.550-1.02 mg/dL Glomerular Filtration Rate Calc 88 >90 mL/min BUN/Creatinine Ratio 9.9 L 10.0-20.0 Serum Glucose 285 H 74-106 mg/dL Calcium Level 9.7 8.7-10.4 mg/dL SEPSIS Sepsis Screen Date sepsis recognized/suspect: Sep 09, 2025 Time Sepsis recognized/suspect: 135 Recent Procedure: No On Antibiotic Therapy: No Respiratory Rate >20: No Heart Rate >90: No Temp<36 C (96.8 F) or >38.3 C: No SBP <90 or MAP <65 mmHG: No New Acute Mental Status Change: No Is the patient on CPAP, BIPAP,: No Physician Orders Admit (09/09/25 23:29) Code Status (09/09/25 23:29) Enoxaparin Sodium (Lovenox) (09/10/25 10:00) Complete Blood Count (09/10/25 04:00) Comprehensive Metabolic Panel (09/10/25 04:00) Cardiac Diet-2gna,Lofat,Lochol (09/10/25 Breakfast) Condition: Fair (09/09/25 23:29) Vital Signs Date Time Temp Pulse Resp B/P (MAP) Pulse Ox O2 Delivery O2 Flow Rate FiO2 09/09/25 21:47 65 16 157/72 (100) 98 09/09/25 18:03 98.2 68 16 143/70 (94) 97 98.2 Laboratory Tests Test 09/09/25 14:42 White Blood Count 4.6 10^3/uL (4.4-10.8) Assessment/Plan Assessment/Plan Assessment and plan Presyncope History of stroke Orthostatic vital signs EKG UDS Magnesium IV Fluids CT head Uncontrolled hypertension continue hydrochlorothiazide and losartan Type 2 diabetes mellitus with uncontrolled hyperglycemia Insulin Lantus, lispro Hemoglobin A1c sliding scale insulin Dyslipidemia Continue atorvastatin PUD prophylaxis: protonix 40mg DVT prophylaxis: Levonox 40mg Barriers to discharge: Medical diagnosis and management in progress. Patient lives with family. Independent for ADL. PCP: Dr. Monsivais Specialist Relevent To Admission: None Case discussed with Dr. Balbuena. Code Status: Full Code. Complex patient care discussion needed. Spend total 35 minutes for bedside assessment, case discussion and management. Plan discussed with: Patient My Orders Orders - YASIR KUHN Procedure Category Date Status Time Admit ADMIT 09/09/25 Transmitted 23:29 Code Status CODE 09/09/25 Transmitted 23:29 Enoxaparin Sodium PHA 09/10/25 In Process (Lovenox) 10:00 Complete Blood Count LAB 09/10/25 Verified 04:00 Comprehensive LAB 09/10/25 Verified Metabolic Panel 04:00 Cardiac DIET 09/10/25 Transmitted Diet-2gna,Lofat,Lochol Breakfast Condition: Fair LEVI 09/09/25 In Process 23:29 Visit Coding STANDARD RES Billing Provider: YASIR KUHN Date of Service if different f: Sep 09, 2025 Common Visit Codes: 85101-[id number] INP/OBS CARE (HIGH) Secondary Visit Codes: [id number] CARE PLAN 30 MINUTES YASIR KUHN Sep 09, 2025 23:53
[2025-09-10] VITALS (7 sets, daily range): BP systolic 111–143; BP diastolic 67–87; PULSE 57–90; RESP 18–19; TEMP 97.6–98.1; O2SAT 97–99
[2025-09-10] MEDS ORDERED: DEXTROSE (50%) 50ML SYRG IV PRN
[2025-09-10] MEDS: ACCU-CHEK COMFORT CURVE STRIP VI SCH (01:30)
[2025-09-10] MEDS: InsuLIN REG 1unit/0.01ml Soln (100units/ml) SC SCH (01:37)
[2025-09-10 03:02] LABS: Amphetamine Screen, Urine Neg (NEGATIVE); Barbiturate Scree,Urine Neg (NEGATIVE); Benzodiazephine Screen, Urine Neg (NEGATIVE); Cannabinoid Screen, Urine Neg (NEGATIVE); Cocaine Screen, Urine Neg (NEGATIVE); Opiate Scree,Urine Neg (NEGATIVE); Phencyclidine Screen, Urine Neg (NEGATIVE)
[2025-09-10] MEDS: INSULIN LANTUS (GLARGINE) 1 /0.01ml (100units/ml) SC SCH (06:41)
[2025-09-10] MEDS: INSULIN LISPRO (HUMAN) 100 UNITS/ML ML SC SCH (06:47)
[2025-09-10 10:05] LABS: Hematocrit 41.1 % (36.0-46.0); Hemoglobin 13.6 g/dL (12.2-16.2)
[2025-09-10 10:07] LABS: Mean Corpuscular Hemoglobin 26.1 pg (28.0-32.0); Mean Corpuscular Volume 78.9 fL (80.0-100.0); Nucleated Red Blood Cells % 0.1 %
[2025-09-10] MEDS: CLOPIDOGREL BISULFATE 75 MG TAB PO SCH (10:29)
[2025-09-10] MEDS: hydroCHLOROthiazide 25 MG TAB PO SCH (10:29)
[2025-09-10] MEDS: PANTOPRAZOLE 40 MG/10 ML VIAL INJ IV SCH (10:30)
[2025-09-10] MEDS: LOSARTAN POTASSIUM 50 MG TAB PO SCH (10:30)
[2025-09-10] MEDS: ENOXAPARIN SOD 40 MG/0.4 ML SYRINGE SC SCH (10:31)
[2025-09-10 10:34] LABS: Alanine Aminotransferase 18.0 U/L (7-40); Alanine Aminotransferase 19 U/L (7-40); Albumin 4.7 g/dL (3.2-4.8); Alkaline Phosphatase 100 U/L (46-116); Alkaline Phosphatase 100.0 U/L (46-116); Anion Gap 9 (5-15); BUN/Creatinine Ratio 12.5 (10.0-20.0); Blood Urea Nitrogen 10 mg/dL (9-23); Calcium 10.1 mg/dL (8.7-10.4); Carbon Dioxide 28 mmol/L (20-31); Chloride 104 mmol/L (98-107); Magnesium 2.0 mg/dL (1.6-2.6); Potassium 3.8 mmol/L (3.5-5.1); Sodium 141 mmol/L (136-145); Total Protein 7.7 g/dL (5.7-8.2); Triglycerides 54 mg/dL (< 150)
[2025-09-10 10:35] LABS: Bilirubin, Direct 0.4 mg/dL (<0.3); Bilirubin, Total 1.3 mg/dL (0.2-1.0); Cholesterol 117 mg/dL (< 200); Glucose 232 mg/dL (74-106); HDL Cholesterol 56 mg/dL (40-59)
[2025-09-10] MEDS: MAALOX PLUS or MAALOX 30 ML PO PRN (12:06)
[2025-09-10] MEDS: LACTULOSE 20Gm/30ML SOLN PO ONE (12:06)
[2025-09-10 13:18] LABS: Protein, Urine 12.1 mg/dL (1-14)
--- NOTE | 2025-09-10 14:04 | DVHDSRES ---
Discharge Summary Date of Admission Resident Creating Document: YASIR KUHN RESIDENT Sep 09, 2025 at 23:29 Date of Discharge: Sep 10, 2025 Admitting Diagnosis Acute chest pain likely due to acute coronary syndrome and headache and dizziness Labs/Diagnostic Data: Laboratory Results Test 09/10/25 13:28 09/10/25 11:35 09/10/25 09:43 09/10/25 05:16 POC Glucose 183 mg/dl (70-106) White Blood Count 5.1 10^3/uL (4.4-10.8) Red Blood Count 5.20 10^6/uL (4.0-5.20) Hemoglobin 13.6 g/dL (12.2-16.2) Hematocrit 41.1 % (36.0-46.0) Mean Corpuscular Volume 78.9 fL (80.0-100.0) Mean Corpuscular Hemoglobin 26.1 pg (28.0-32.0) Mean Corpuscular Hemoglobin Concent 33.1 g/dL (32.0-36.0) Red Cell Distribution Width 13.0 % (11.8-14.3) Platelet Count 220 10^3/uL (140-450) Mean Platelet Volume 8.8 fL (6.9-10.8) Neutrophils (%) (Auto) 56.2 % (37.0-80.0) Lymphocytes (%) (Auto) 29.5 % (10.0-50.0) Monocytes (%) (Auto) 11.8 % (0.0-12.0) Eosinophils (%) (Auto) 1.3 % (0.0-7.0) Basophils (%) (Auto) 1.2 % (0.0-2.0) Neutrophils # (Auto) 2.9 10 ^3/uL (1.6-8.6) Lymphocytes # (Auto) 1.5 10 ^3/uL (0.4-5.4) Monocytes # (Auto) 0.6 10 ^3/uL (0-1.3) Eosinophils # (Auto) 0.1 10 ^3/uL (0-0.8) Basophils # (Auto) 0.1 10 ^3/uL (0-0.2) Nucleated Red Blood Cells 0.1 % Sodium Level 141 mmol/L (136-145) Potassium Level 3.8 mmol/L (3.5-5.1) Chloride Level 104 mmol/L (98-107) Carbon Dioxide Level 28 mmol/L (20-31) Anion Gap 9 (5-15) Blood Urea Nitrogen 10 mg/dL (9-23) Creatinine 0.80 mg/dL (0.550-1.02) Glomerular Filtration Rate Calc 76 mL/min (>90) BUN/Creatinine Ratio 12.5 (10.0-20.0) Serum Glucose 232 mg/dL (74-106) Calcium Level 10.1 mg/dL (8.7-10.4) Magnesium Level 2.0 mg/dL (1.6-2.6) Total Bilirubin 1.3 mg/dL (0.2-1.0) Direct Bilirubin 0.4 mg/dL (<0.3) Aspartate Amino Transferase (AST) 14 U/L (13-40) Alanine Aminotransferase (ALT) 18 U/L (7-40) Alkaline Phosphatase 100 U/L (46-116) Total Protein 7.7 g/dL (5.7-8.2) Albumin 4.7 g/dL (3.2-4.8) Triglycerides Level 54 mg/dL (< 150) Cholesterol Level 117 mg/dL (< 200) LDL Cholesterol 39 mg/dL (< 100) HDL Cholesterol 56 mg/dL (40-59) Vitamin B12 Level 591 pg/mL (211-911) Vitamin D 25-Hydroxy 30.4 ng/mL (30.0-100) Folic Acid 25.39 ng/mL (>5.38) Thyroid Stimulating Hormone (TSH) 0.12 uIU/mL (0.55-4.78) Hemoglobin A1c 7.8 % A1C (<5.7) B-Type Natriuretic Peptide 2.87 pg/mL (0-100) Test 09/10/25 02:35 09/09/25 19:11 Urine Creatinine 81.44 mg/dL (30.0-125.0) Urine Microalbumin 10.0 mg/L (<30.0) Urine Protein/Creatinine Ratio 0.15 Urine Total Protein 12.1 mg/dL (1-14) Urine Opiates Screen Neg (NEGATIVE) Urine Fentanyl Screen Neg (NEGATIVE) Urine Barbiturates Screen Neg (NEGATIVE) Urine Phencyclidine Screen Neg (NEGATIVE) Urine Amphetamines Screen Neg (NEGATIVE) Urine Benzodiazepines Screen Neg (NEGATIVE) Urine Cocaine Screen Neg (NEGATIVE) Urine Cannabinoids Screen Neg (NEGATIVE) Urine Color Light-yellow (Yellow) Urine Clarity Clear (Clear) Urine pH 7.0 (5.0-9.0) Urine Specific [place] 1.011 (1.001-1.035) Urine Protein Negative (Negative) Urine Ketones Negative (Negative) Urine Blood Negative /uL (Negative) Urine Nitrite Negative (Negative) Urine Bilirubin Negative (Negative) Urine Urobilinogen Normal mg/dL (Negative) Urine Leukocyte Esterase Negative /uL (Negative) Urine RBC <1 /hpf (0 - 4) Urine Microscopic WBC < 1 /HPF (0-5) Urine Squamous Epithelial Cells Few /hpf (<5) Urine Bacteria None seen /hpf (None Seen) Urine Glucose 4+ mg/dL (Normal) Other Laboratory Tests 09/10/25 09:43 Brief Hx & Hospital Course: Bev Trejo is a 75-year-old female with past medical history of stroke with residual left-sided weakness, diabetes mellitus, hypertension, dyslipidemia presented to the hospital with complaints of headache and chest pain since 2 weeks. she also complains of associated dizziness, mostly when she stands up from a sitting position. She rates the chest pain for on 10 in intensity, sharp, on and off and radiating to the left side of abdomen. As per the patient's daughter, nurse practitioner visited the patient's home, blood glucose and blood pressure was elevated. she denies any fever, shortness of breath, vomiting or diarrhea. Initial lab workup revealed hemoglobin A1c 7.8, serum bilirubin 1.3, BNP 2.87, troponin with a normal limit. Chest x-ray no acute abnormality noted. Hospital course-hospital course patient was treated conservatively. Orthostatic vitals negative, [place]-Hallpike maneuver negative. CT head no live for acute intracranial hemorrhage or infarction. Troponin and BNP with a normal limit. X-ray KUB suspected lower quadrant. Patient was given lactulose. Patient is adamant about going home today. Pending echo 2D report. Patient walked around in physicians presents with a any concern. Patient was advised to gradually change her position from lying to sitting and sitting to standing to avoid orthostatic hypotension. Orthostatic vital was with a normal limit. Patient was advised to follow up with the [place] [facility] with a echo 2D report. Patient was advised to follow up with the PCP. Patient was hemodynamically stable on discharge. All questions answered. General Appearance: Alert, Oriented X3, Cooperative, No acute distress HEENT: Atraumatic, PERRLA, EOMI, Mucous membrane moist/pink Respiratory: Clear to auscultation, Normal air movement Cardiovascular: Regular rate, Normal S1, Normal S2, No murmurs, chest wall tenderness present Abdominal: Normal bowel sounds, Soft, No tenderness, No hepatospenomegaly, No masses Extremities: No clubbing, No cyanosis, No edema, Normal pulses, No tenderness/swelling Skin: No rashes, No breakdown, No significant lesion Neuro: Normal gait, Normal speech, Strength at 5/5 X4 ext, Normal tone, Sensation intact, Cranial nerves 3-12 NL, Reflexes 2+ Psych/Mental Status: Mental status NL, Mood NL Assessment Acute chest pain likely due to costochondritis Ruled out acute coronary syndrome Substance suspected peptic ulcer disease Dizziness ruled out acute stroke History of CVA Presyncope Diabetes mellitus type 2 Uncontrolled hypertension Diabetes mellitus type 2 with hyperglycemia Hyperlipidemia Hyperbilirubinemia chronic Plan Pantoprazole 40 mg p.o. daily Maaolax as prescribed Tylenol PRN Resume other home medication Follow up with the clinic with the echo 2D report/PCP Avoid dehydration Gradual position change from lying to sitting and sitting to standing as described with the patient at bedside in family is present son and [id number]. Plan of care discussed with Dr. Vasquez Operations or Procedures [place] [id number] Ph: [phone] DIAGNOSTIC IMAGING Diagnostic Imaging Report : [id number] Signed PATIENT: BEV TREJOUACCT: [id number] UNIT: [id number] : 1950 LOC: ER ROOM / BED: / AGE / SEX: 75 / F ADM STATUS: REG ER SERVICE [id number] ORDERING PHYSICIAN: GINGER CHAPIN MD PROCEDURE(s): HWOCT - HEAD WITHOUT CONTRAST REASON: headache ORDER NUMBER(s): [id number], ACCESSION NUMBER(s): [id number] EXAM: CT HEAD WITHOUT CONTRAST INDICATION: headache TECHNIQUE: CT of the head without intravenous contrast. Radiation Dose : 1. Head: CT Dose: CTDI volume is 52.33 mGy. Dose-length product is 926.68 mGy*cm The dose indicators for CT are the volume Computed Tomography (CT) Dose Index (CTDIvol) and the Dose Length Product (DLP), and are measured in units of mGy and mGy-cm, respectively. These indicators are not patient dose, but values generated from the CT scanner acquisition factors. The report includes radiation exposure data for exposures received during this examination. COMPARISON: MRI BRAIN HEAD WO CONTRAST on DOS: 05/14/24, CT HEAD WITHOUT CONTRAST on DOS: 05/13/24 FINDINGS: There is no evidence of acute intracranial hemorrhage, extra-axial collection, mass effect, midline shift, herniation or hydrocephalus. Chronic appearing left thalamic lacunar infarct. The ventricles, sulci and cisterns are age appropriate. The stroud-white differentiation is intact. Patchy periventricular and subcortical white matter hypoattenuation is nonspecific but may be related to small vessel ischemic disease. The visualized paranasal sinuses and mastoid air cells are clear. The surrounding soft tissues and osseous structures are unremarkable. IMPRESSION: 1. No acute intracranial abnormality. 2. 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 Radiation optimization: All CT scans at this facility use at least one of these dose optimization techniques: automated exposure control mA and/or kV adjustment per patient size (includes targeted exams where dose is matched to clinical indication) or iterative reconstruction. ATED BY: ERNST ODEN MD DICTATED DATE/TIME: 09/09/251515 SIGNED BY: ERNST ODEN MD SIGNED DATE/TIME: 09/09/25 151 CC: Condition at Discharge: Stable Final Diagnosis/Problems List Acute chest pain likely due to costochondritis Ruled out acute coronary syndrome Substance suspected peptic ulcer disease Dizziness ruled out acute stroke History of CVA Presyncope Diabetes mellitus type 2 Uncontrolled hypertension Diabetes mellitus type 2 with hyperglycemia Hyperlipidemia Discharge Disposition: Home Discharge Instruct/Medications Diet: Consistent carbohydrate, Cardiac 2g Na,low cholest Follow Up/Referral: DC clinic follow up with the echo 2D report PCP Medications: As per EMR Scheduled Alum & Mag Hydrox-Simethicone (Maalox Plus), 15 ML PO TID Amlodipine Besylate (Amlodipine Besylate), 10 MG PO DAILY, (Reported) Amoxicillin & Pot Clavulanate (Augmentin Tablet), 875 MG PO BID Aspirin (Aspirin 81 Low Dose), 81 MG PO DAILY, (Reported) Atenolol (Atenolol), 25 MG PO DAILY Atorvastatin Calcium (Atorvastatin Calcium), 40 MG PO DAILY, (Reported) Clopidogrel Bisulfate (Clopidogrel), 75 MG PO DAILY, (Reported) Hydrochlorothiazide (Hydrochlorothiazide), 1 TAB PO DAILY, (Reported) Losartan Potassium (Losartan Potassium), 50 MG PO DAILY, (Reported) Pantoprazole Sodium Sesquihydr (Pantoprazole Sodium), 40 MG PO DAILY@0600 Scheduled PRN Acetaminophen (Acetaminophen), 650 MG PO Q6HP PRN Meclizine Hcl (Meclizine Hcl), 1 TAB PO TID PRN Discharge Statement: "Patient was advised to return to the ER or call 911 if any headaches, dizziness, shortness of breath, chest pain, abdominal pain, bleeding, fevers, or worsening of medical condition. Patient was counseled about treatment plan, medications, possible side effects, patientverbalized understanding. All questions were answered to the best of my ability. This discharge took greater then 30 minutes in planning, reviewing documentation, counseling the patient, and discussing with other team members." ASSESSMENT ASSESSMENT Assessment Visit Coding STANDARD RES Billing Provider: JOHN SKELTON MD Date of Service if different f: Sep 10, 2025 Common Visit Codes: 05305-JQA/OBS DISCH DAY >30min DALTON ALEMAN RESIDENT Sep 10, 2025 14:04
[2025-09-10] MEDS ORDERED: MECL12.586 PO (14:18)
[2025-09-10] MEDS ORDERED: MAA30LQ PO (14:20)
[2025-09-10] MEDS ORDERED: LACT10SO3 PO (14:48)
--- NOTE | 2025-09-10 14:51 | DVH ---
CHEST RADIOGRAPH INDICATION: pna TECHNIQUE: Single frontal view of the chest was obtained COMPARISON: XY CHEST XRAY 1 VIEW on DOS: 11/29/24, XY CHEST PORTABLE on DOS: 08/19/24, XY CHEST PORTABLE on DOS: 05/13/24, XY CHEST TWO VIEWS ROUTINE on DOS: 04/26/24, XY CHEST XRAY 1 VIEW on DOS: 03/19/24 FINDINGS: Lines and Tubes: None Lungs: Clear Pleura: No effusion. No pneumothorax. Cardiomediastinal contours: Unremarkable Bones: Unremarkable IMPRESSION: No acute disease.
--- NOTE | 2025-09-10 14:52 | DVH ---
EXAM: XY KUB ABDOMEN SINGLE VIEW INDICATION: abd pain, stool burden COMPARISON: None TECHNIQUE: 1 radiographic views of the abdomen. FINDINGS: Nonobstructive bowel gas pattern noted. Moderate to large volume colonic stool. There is no definite evidence for pneumoperitoneum. No abnormal calcifications noted. IMPRESSION: Nonobstructive bowel gas pattern noted.
--- NOTE | 2025-09-10 20:12 | DVHSR ---
APPROVED REPORT EXAM: Two-dimensional and M-mode echocardiogram with Doppler and color Doppler. Blood Pressure: 146/76 mmHg INDICATION Presyncope RISK FACTORS Height: 64, Weight: 139 DIMENSIONS LVDd 3.7 (3.8-5.7cm) LA (2D) 3.1 (1.9-4.0cm) Aortic Root 3.5 (2.0-3.7cm) LVDs 2.3 (2.5-4.0cm) LA (MM) (1.9-4.0cm) Aortic Cusp Exc 1.4 (1.5-2.0cm) EF (%) 70.0 (55-70%) Rt. Atrium 3.2 (1.9-4.0cm) Asc. Aorta cm Mitral Valve Mitral Mitral Stenosis E wave 0.69m/s MV Mean GR. mmHg A wave 0.96m/s MV Peak GR. 78mmHg E/A ratio 0.7 2D MVA cm2 DECEL Time 276ms PRESS 1/2 Time 94ms IVRT ms Dop MVA 2.34cm2 Aortic Valve Aortic Valve Aortic Stenosis V1 1.19m/s AO Mean GR. 4mmHg V2 1.45m/s AO Peak GR. 8mmHg LVOT Diameter 1.8 (1.8-2.4cm) Doppler MING 2.09cm2 AI P 1/2 Time 601.55ms Pulmonic Valve V2 0.79m/s Tricuspid Valve TR Velocity 2.26m/s RVSP 24mmHg Conclusion MILD LVH AND MILD LV DIASTOLIC DYSFUNCTION LV EF IS 70% AORTIC SCLEROSIS NORMAL MV,TV AND PV SLIGHTLY DILATED RV AND RA NO EFFUSION
[2025-09-10] MEDS ORDERED: ATORVASTATIN 20 MG TAB PO SCH (22:00)
--- NOTE | 2025-09-11 08:31 | ECG ---
[facility] Test Date: 2025-09-09 Test Time: 22:27:36 Pat Name: BEV TREJO Department: Room: 0287 B Gender: F Photography Instructor: : 1950 Requested By: DALTON ALEMAN Order Number: [id number] Reading MD: Oliver Diaz Measurements Intervals [place] Rate: 75 P: 65 [place]: 155 QRS: 30 QRSD: 87 T: -2 QT: 390 QTc: 436 Interpretive Statements Sinus rhythm Anteroseptal infarct, age indeterminate Electronically Signed On 09-11-2025 10:32:45 PST by Oliver Diaz Please click the below link to view image of tracing.
[2025-09-11] MEDS ORDERED: LACTULOSE 20Gm/30ML SOLN PO SCH (10:00)
--- NOTE | 2025-09-14 17:05 | ECG ---
[facility] Test Date: 2025-09-10 Test Time: 10:55:26 Pat Name: BEV TREJO Department: Room: 0287 B Gender: F [employer]: NED : 1950 Requested By: DALTON ALEMAN Order Number: [id number] Reading MD: Oliver Diaz Measurements Intervals [place] Rate: 67 P: 49 MO: 169 QRS: -14 QRSD: 85 T: 17 QT: 407 QTc: 430 Interpretive Statements Sinus rhythm Left ventricular hypertrophy Electronically Signed On 09-17-2025 15:59:40 PST by Oliver Diaz Please click the below link to view image of tracing.
== END 2025-09-10 19:18 | disposition home or self-care (01) | DRG 203 ==
LOC: ER 13:50 → OVERFLOW 23:29 → WEST WING 09-10 01:20
PROVIDERS: ATTEND Emergency Medicine
DX: M94.0 Chondrocostal junction syndrome [Tietze] (principal); I69.354 Hemiplegia and hemiparesis following cerebral infarction affecting left non-dominant side; E11.65 Type 2 diabetes mellitus with hyperglycemia; I10 Essential (primary) hypertension; K27.9 Peptic ulcer, site unspecified, unspecified as acute or chronic, without hemorrhage or perforation; E78.5 Hyperlipidemia, unspecified; R55 Syncope and collapse; R42 Dizziness and giddiness; E80.6 Other disorders of bilirubin metabolism
CPT/HCPCS: 36415; 70450; 71045; 74018; 80048; 80053; 80061; 80076; 80307; 81001; 82043; 82306; 82570; 82607; 82746; 82962; 83036; 83735; 83880; 84156; 84443; 84484; 85025; 93005; 93306; G0378; J1815; J2470